=== PATIENT | female | born 1945 | race Caucasian/White ===

== ENCOUNTER 2020-10-30 20:15 | Emergency (ER) | payer OTHER ==
--- OUTSIDE RECORDS SUMMARY | 2020-10-30 20:24 | XMS REPORT | Continuity of Care Document ---
:1945 Author Organization [facility] t Address [facility] Ghanshyam [address] [place] [address] Care Team Providers Name Role Phone Coral Carmen Attending Clinician Unavailable Jossy Song Attending Clinician [phone] Ivan Anaya Attending Clinician Coral Carmen Admitting Clinician Unavailable Ivan Anaya Admitting Clinician Payers Payer Name Policy Type Policy Number Effective Date Expiration Date S ource Problems Condition Condition Condition Status Onset Resolution Last Treating Co mments Source Name Details Category Date Date Treatment Clinician Date ANEMIA Diagnosis Active 2018-032019-01-21 Mem oria 03-12 22:20:00 l ANEMIA 14:03: Ghanshyam 00 Active 01/10/2019 [facility] Ghanshyam 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 [place] ANEMIA, Diagnosis Active 2019-01-21 Me moria UNSPECIFIE 22:20:00 l D ANEMIA, [place] UNSPECIFIE D Active [facility] Allergies, Adverse Reactions, Alerts Allergy Allergy Status Severity Reaction(s) Onset Inactive Treating Comm ents Source Name Type Date Date Clinician No Known DA Active [facility]ie 10-06 [facility] 00:00: [facility] 00 [facility] Social History Smoking Status Start Date Stop Date Source Social History [facility] Medications Ordered Filled Start Stop Current Ordering Indication Dosage Frequency Signature Comments Components Source Medication Medication Date Date Medication? Clinician (SIG) Name Name cefdinir 2019 Yes 300 mg = 1 Mem oria 300 MG Oral 1-12 cap, PO, l Capsule 22:55: Q12H, X 7 Peri nn 00 day, # 14 cap, 0 Refill(s), Pharmacy: [facility] #[id number] cefdinir 2018-03 Yes 300 mg = 1 Mem oria 300 MG Oral 1-12 cap, PO, l Capsule 22:55: Q12H, X 7 Peri nn 00 day, # 14 cap, 0 Refill(s), Pharmacy: [facility] #[id number] cefdinir 2018-03 Yes 300 mg = 1 Mem oria 300 MG Oral 1-12 cap, PO, l Capsule 22:55: Q12H, X 7 Peri nn 00 day, # 14 cap, 0 Refill(s), Pharmacy: [facility] #[id number] Vitamin 2018-03 Yes See Memoria B-12 1000 1-12 Instructio l mcg/mL 22:52: ns, 1,000 Pete n injectable 00 microgram solution SUB-Q daily for three days then once a week (saturday) for a month, then once monthly therafter, # 30 mL, 3 Refill(s), Pharmacy: [facility] #[id number] Folic Acid 2018-03 Yes 1 mg = 1 Mem oria 1 MG Oral 1-12 tab, PO, l Tablet 22:52: Daily, # [place] 00 30 tab, 3 Refill(s), Pharmacy: [facility] #[id number] Vitamin 2018-03 Yes See Memoria B-12 1000 1-12 Instructio l mcg/mL 22:52: ns, 1,000 Pete n injectable 00 microgram solution SUB-Q daily for three days then once a week (saturday) for a month, then once monthly therafter, # 30 mL, 3 Refill(s), Pharmacy: [facility] #[id number] Folic Acid 2018-03 Yes 1 mg = 1 Mem oria 1 MG Oral 1-12 tab, PO, l Tablet 22:52: Daily, # Ghanshyam 00 30 tab, 3 Refill(s), Pharmacy: [facility] #[id number] Vitamin 2018-03 Yes See Memoria B-12 1000 12 Instructio l mcg/mL 22:52: ns, 1,000 Pete n injectable 00 microgram solution SUB-Q daily for three days then once a week (saturday) for a month, then once monthly therafter, # 30 mL, 3 Refill(s), Pharmacy: [facility] #[id number] Folic Acid 2018-03 Yes 1 mg = 1 Mem oria 1 MG Oral -12 tab, PO, l Tablet 22:52: Daily, # Ghanshyam 00 30 tab, 3 Refill(s), Pharmacy: [facility] #[id number] Vitamin B 2018-03 No Notes: Memori a 12 -12 (Same As: l 15:00: Vitamin [place] 00 B12) Vitamin B 2018-03 No Notes: Memori a 12 12 (Same As: l 15:00: Vitamin Ghanshyam 00 B12) Vitamin B 2018-03 No Notes: Memori a 12 -12 (Same As: l 15:00: Vitamin [place] 00 B12) Vitamin B 2018-03 No Notes: Memori a 12 -10 (Same As: l 21:00: Vitamin Ghanshyam 00 B12) Vitamin B 2018-03 No Notes: Memori a 12 -10 (Same As: l 21:00: Vitamin [place] 00 B12) Vitamin B 2018-03 No Notes: Memori a 12 -10 (Same As: l 21:00: Vitamin Ghanshyam 00 B12) Sodium 2018-03 No 250 mL, Memoria Chloride 10 Rate: To l 0.9% 20:02: prime line Ghanshyam (titrate) 00 and flush 250 mL remaining blood products., Dosing Weight 109.9, kg, Route: IV, Total Volume: 250, Start Date: 01/11/19 14:02:00 EMBOSSING MACHINE OPERATOR, Duration: 1 day, Stop date: 01/12/19 14:01:00 EMBOSSING MACHINE OPERATOR, Replace Every: 24 hr, 0 Sodium 2018-03 No 250 mL, Memoria Chloride -10 Rate: To l 0.9% 20:02: prime line Ghanshyam (titrate) 00 and flush 250 mL remaining blood products., Dosing Weight 109.9, kg, Route: IV, Total Volume: 250, Start Date: 01/11/19 14:02:00 EMBOSSING MACHINE OPERATOR, Duration: 1 day, Stop date: 01/12/19 14:01:00 EMBOSSING MACHINE OPERATOR, Replace Every: 24 hr, 0 Sodium 2018-03 No 250 mL, Memoria Chloride 1-10 Rate: To l 0.9% 20:02: prime line [place] (titrate) 00 and flush 250 mL remaining blood products., Dosing Weight 109.9, kg, Route: IV, Total Volume: 250, Start Date: 01/11/19 14:02:00 EMBOSSING MACHINE OPERATOR, Duration: 1 day, Stop date: 01/12/19 14:01:00 EMBOSSING MACHINE OPERATOR, Replace Every: 24 hr, 0 Synthroid 2018-03 No Notes: Memori a 1-10 Take 1 l 15:00: hour [place] 00 before or 2 hours after meal; Enteral feeds may interefere with the absorption of this medication . (Same as:Levothr oid, Synthroid) Folic Acid 2018-03 No Notes: Memor ia 1-10 (Same as: l 15:00: Folvite) [place] Synthroid 2018-03 No Notes: Memori a 1-10 Take 1 l 15:00: hour Ghanshyam 00 before or 2 hours after meal; Enteral feeds may interefere with the absorption of this medication . (Same as:Levothr oid, Synthroid) Folic Acid 2018-03 No Notes: Memor ia 1-10 (Same as: l 15:00: Folvite) Ghanshyam Synthroid 2018-03 No Notes: Memori a 1-10 Take 1 l 15:00: hour Ghanshyam 00 before or 2 hours after meal; Enteral feeds may interefere with the absorption of this medication . (Same as:Levothr oid, Synthroid) Folic Acid 2018-03 No Notes: Memor ia 1-10 (Same as: l 15:00: Folvite) Sodium 2018-03 No 250 mL, Memoria Chloride 1-10 Rate: To l 0.9% 09:36: prime line [place] (titrate) 00 and flush 250 mL remaining blood products., Dosing Weight 109.9, kg, Route: IV, Total Volume: 250, Priority: Routine, Start Date: 01/11/19 3:36:00 EMBOSSING MACHINE OPERATOR, Duration: 1 day, Stop date: 01/12/19 3:35:00 EMBOSSING MACHINE OPERATOR, Replace Every: 24 hr, 0 Sodium 2018-03 No 250 mL, Memoria Chloride 1-10 Rate: To l 0.9% 09:36: prime line [place] (titrate) 00 and flush 250 mL remaining blood products., Dosing Weight 109.9, kg, Route: IV, Total Volume: 250, Priority: Routine, Start Date: 01/11/19 3:36:00 EMBOSSING MACHINE OPERATOR, Duration: 1 day, Stop date: 01/12/19 3:35:00 EMBOSSING MACHINE OPERATOR, Replace Every: 24 hr, 0 Sodium 2018-03 No 250 mL, Memoria Chloride 1-10 Rate: To l 0.9% 09:36: prime line Ghanshyam (titrate) 00 and flush 250 mL remaining blood products., Dosing Weight 109.9, kg, Route: IV, Total Volume: 250, Priority: Routine, Start Date: 01/11/19 3:36:00 EMBOSSING MACHINE OPERATOR, Duration: 1 day, Stop date: 01/12/19 3:35:00 EMBOSSING MACHINE OPERATOR, Replace Every: 24 hr, 0 Ceftriaxone 2018-03 No Notes: Sj marilee 1-10 (Same As: l 08:00: Rocephin). Ghanshyam 00 MEDICATION WASTE Product Size: 1000 mg Product Wasted: ___ mg Ceftriaxone 2018-03 No Notes: Sj marilee 1-10 (Same As: l 08:00: Rocephin). Ghanshyam 00 MEDICATION WASTE Product Size: 1000 mg Product Wasted: ___ mg Ceftriaxone 2018-03 No Notes: Sj marilee 1-10 (Same As: l 08:00: Rocephin). Ghanshyam 00 MEDICATION WASTE Product Size: 1000 mg Product Wasted: ___ mg Hydromorpho 2018-03 No Notes: Sj marilee ne 1-10 Same as: l 07:53: Dilaudid Ghanshyam Hydromorpho 2018-03 No Notes: Sj marilee ne 1-10 Same as: l 07:53: Dilaudid Ghanshyam Hydromorpho 2018-03 No Notes: Sj marilee ne 1-10 Same as: l 07:53: Dilaudid Ghanshyam Robitussin 2018-03 No Notes: Memor ia DM -10 (dextromet l 01:03: horphan-gu Ghanshyam 00 aifenesin 10-100mg/5 ml 10 ml oral SOLN ud) (Same as: Robitussin DM) Robitussin 2018-03 No Notes: Memor ia DM 1-10 (dextromet l 01:03: horphan-gu Ghanshyam 00 aifenesin 10-100mg/5 ml 10 ml oral SOLN ud) (Same as: Robitussin DM) Robitussin 2018-03 No Notes: Memor ia DM 1-10 (dextromet l 01:03: horphan-gu Ghanshyam 00 aifenesin 10-100mg/5 ml 10 ml oral SOLN ud) (Same as: Robitussin DM) Sodium 2018-03 No 1,000 mL, Memori a Chloride 1-10 Rate: 125 l 0.9% IV 00:59: ml/hr, [place] 1,000 mL 00 Infuse over: 8 hr, Route: IV, Dosing Weight 109.9 kg, Total Volume: 1,000, Start date: 01/10/19 18:59:00 EMBOSSING MACHINE OPERATOR, Duration: 30 day, Stop date: 02/09/19 18:58:00 EMBOSSING MACHINE OPERATOR, 2.28, m2, 0 Sodium 2018-03 No 1,000 mL, Memori a Chloride 1-10 Rate: 125 l 0.9% IV 00:59: ml/hr, [place] 1,000 mL 00 Infuse over: 8 hr, Route: IV, Dosing Weight 109.9 kg, Total Volume: 1,000, Start date: 01/10/19 18:59:00 EMBOSSING MACHINE OPERATOR, Duration: 30 day, Stop date: 02/09/19 18:58:00 EMBOSSING MACHINE OPERATOR, 2.28, m2, 0 Sodium 2018-03 No 1,000 mL, Memori a Chloride 1-10 Rate: 125 l 0.9% IV 00:59: ml/hr, Ghanshyam 1,000 mL 00 Infuse over: 8 hr, Route: IV, Dosing Weight 109.9 kg, Total Volume: 1,000, Start date: 01/10/19 18:59:00 EMBOSSING MACHINE OPERATOR, Duration: 30 day, Stop date: 02/09/19 18:58:00 EMBOSSING MACHINE OPERATOR, 2.28, m2, 0 Sodium 2018-03 No 1,000 mL, Memori a Chloride 1-10 1,000 l 0.9% 00:58: ml/hr, [place] (Bolus) IV 00 Infuse Over: 1 hr, Route: IV, 1,000, Drug form: INJ, ONCE, Priority: STAT, Dosing Weight 109.9 kg, Start date: 01/10/19 18:58:00 EMBOSSING MACHINE OPERATOR, Stop date: 01/10/19 18:58:00 EMBOSSING MACHINE OPERATOR, 0 Sodium 2019- No 1,000 mL, Memori a Chloride 1-10 1,000 l 0.9% 00:58: ml/hr, [place] (Bolus) IV 00 Infuse Over: 1 hr, Route: IV, 1,000, Drug form: INJ, ONCE, Priority: STAT, Dosing Weight 109.9 kg, Start date: 01/10/19 18:58:00 EMBOSSING MACHINE OPERATOR, Stop date: 01/10/19 18:58:00 EMBOSSING MACHINE OPERATOR, 0 Sodium 2019- No 1,000 mL, Memori a Chloride 1-10 1,000 l 0.9% 00:58: ml/hr, [place] (Bolus) IV 00 Infuse Over: 1 hr, Route: IV, 1,000, Drug form: INJ, ONCE, Priority: STAT, Dosing Weight 109.9 kg, Start date: 01/10/19 18:58:00 EMBOSSING MACHINE OPERATOR, Stop date: 01/10/19 18:58:00 EMBOSSING MACHINE OPERATOR, 0 Dextrose 2018- No 12.5 gm, Memor ia 50% Syringe 03-12 25 mL, l 23:59: Route: Ghanshyam 00 IVP, Drug Form: INJ, Dosing Weight 109.9, kg, PRN, PRN Blood Glucose Results, Start date: 01/10/19 17:59:00 EMBOSSING MACHINE OPERATOR, Duration: 30 day, Stop date: 02/09/19 17:58:00 EMBOSSING MACHINE OPERATOR, 0 Glucagon 2018- No 1 mg, Memoria 03-12 Route: IM, l 23:59: Drug form: Ghanshyam 00 PDR/INJ, PRN, Dosing Weight 109.9, kg, PRN Blood Glucose Results, Start date: 01/10/19 17:59:00 EMBOSSING MACHINE OPERATOR, Duration: 30 day, Stop date: 02/09/19 17:58:00 EMBOSSING MACHINE OPERATOR, 0 Ondansetron 2018- No Notes: Sj marilee 03-12 (Same as: l 23:59: Zofran) Ghanshyam 00 MEDICATION WASTE Product Size: 4 mg Product Wasted: ___ mg Melatonin 2018-03 No Notes: Memori a 03-12 (Same as: l 23:59: Melatonin) Acetaminoph 2018-03 No Notes: Do Coral newbyria en 03-12 not exceed l 23:59: 4 gm/day. (Same as: Tylenol) Dextrose 2018-03 No 12.5 gm, Memor ia 50% Syringe 03-12 25 mL, l 23:59: Route: [place] 00 IVP, Drug Form: INJ, Dosing Weight 109.9, kg, PRN, PRN Blood Glucose Results, Start date: 01/10/19 17:59:00 EMBOSSING MACHINE OPERATOR, Duration: 30 day, Stop date: 02/09/19 17:58:00 EMBOSSING MACHINE OPERATOR, 0 Glucagon 2018-03 No 1 mg, Memoria 03-12 Route: IM, l 23:59: Drug form: [place] 00 PDR/INJ, PRN, Dosing Weight 109.9, kg, PRN Blood Glucose Results, Start date: 01/10/19 17:59:00 EMBOSSING MACHINE OPERATOR, Duration: 30 day, Stop date: 02/09/19 17:58:00 EMBOSSING MACHINE OPERATOR, 0 Ondansetron 2018-03 No Notes: Sj marilee 03-12 (Same as: l 23:59: Zofran) MEDICATION WASTE Product Size: 4 mg Product Wasted: ___ mg Melatonin 2018-03 No Notes: Memori a 03-12 (Same as: l 23:59: Melatonin) Acetaminoph 2018-03 No Notes: Do Coral newbyria en 03-12 not exceed l 23:59: 4 gm/day. (Same as: Tylenol) Dextrose 2018-03 No 12.5 gm, Memor ia 50% Syringe 03-12 25 mL, l 23:59: Route: Ghanshyam 00 IVP, Drug Form: INJ, Dosing Weight 109.9, kg, PRN, PRN Blood Glucose Results, Start date: 01/10/19 17:59:00 EMBOSSING MACHINE OPERATOR, Duration: 30 day, Stop date: 02/09/19 17:58:00 EMBOSSING MACHINE OPERATOR, 0 Glucagon 2018-03 No 1 mg, Memoria 03-12 Route: IM, l 23:59: Drug form: [place] 00 PDR/INJ, PRN, Dosing Weight 109.9, kg, PRN Blood Glucose Results, Start date: 01/10/19 17:59:00 EMBOSSING MACHINE OPERATOR, Duration: 30 day, Stop date: 02/09/19 17:58:00 EMBOSSING MACHINE OPERATOR, 0 Ondansetron 2018-03 No Notes: Sj marilee 03-12 (Same as: l 23:59: Zofran) MEDICATION WASTE Product Size: 4 mg Product Wasted: ___ mg Melatonin 2018-03 No Notes: Memori a 03-12 (Same as: l 23:59: Melatonin) Acetaminoph 2018-03 No Notes: Do M emoria en 03-12 not exceed l 23:59: 4 gm/day. (Same as: Tylenol) Synthroid 2018-03 Yes 200 Memoria 1-09 microgram, l 23:49: 0 [place] 00 Refill(s) Synthroid 2018-03 Yes 200 Memoria 1-09 microgram, l 23:49: 0 [place] 00 Refill(s) Synthroid 2018-03 Yes 200 Memoria 1-09 microgram, l 23:49: 0 [place] 00 Refill(s) Streptococc 2018-03 No Notes: Sj marilee us 03-12 Shake well l pneumoniae 23:35: prior to Her childs serotype 1 18 use (Same capsular as: antigen Prevnar diphtheria 13) [id number] protein conjugate vaccine / Streptococc us pneumoniae serotype 14 capsular antigen diphtheria [id number] protein conjugate vaccine / Streptococc us pneumoniae serotype 18C capsular antigen d Streptococc 2018-03 No Notes: Sj marilee us 03-12 Shake well l pneumoniae 23:35: prior to Her childs serotype 1 18 use (Same capsular as: antigen Prevnar diphtheria 13) [id number] protein conjugate vaccine / Streptococc us pneumoniae serotype 14 capsular antigen diphtheria [id number] protein conjugate vaccine / Streptococc us pneumoniae serotype 18C capsular antigen d Streptococc 2018-03 No Notes: Sj marilee us 03-12 Shake well l pneumoniae 23:35: prior to Her childs serotype 1 18 use (Same capsular as: antigen Prevnar diphtheria 13) [id number] protein conjugate vaccine / Streptococc us pneumoniae serotype 14 capsular antigen diphtheria [id number] protein conjugate vaccine / Streptococc us pneumoniae serotype 18C capsular antigen d Sodium 2018-03 No 250 mL, Memoria Chloride 1-09 Rate: To l 0.9% 23:34: prime line [place] (titrate) 00 and flush 250 mL remaining blood products., Dosing Weight 109.9, kg, Route: IV, Total Volume: 250, Priority: Routine, Start Date: 01/10/19 17:34:00 EMBOSSING MACHINE OPERATOR, Duration: 1 day, Stop date: 01/11/19 17:33:00 EMBOSSING MACHINE OPERATOR, Replace Every: 24 hr, 0 Sodium 2019-1 No 250 mL, Memoria Chloride 1- Rate: To l 0.9% 23:34: prime line Ghanshyam (titrate) 00 and flush 250 mL remaining blood products., Dosing Weight 109.9, kg, Route: IV, Total Volume: 250, Priority: Routine, Start Date: 01/10/19 17:34:00 EMBOSSING MACHINE OPERATOR, Duration: 1 day, Stop date: 01/11/19 17:33:00 EMBOSSING MACHINE OPERATOR, Replace Every: 24 hr, 0 Sodium 2018- No 250 mL, Memoria Chloride 03-12 Rate: To l 0.9% 23:34: prime line [place] (titrate) 00 and flush 250 mL remaining blood products., Dosing Weight 109.9, kg, Route: IV, Total Volume: 250, Priority: Routine, Start Date: 01/10/19 17:34:00 EMBOSSING MACHINE OPERATOR, Duration: 1 day, Stop date: 01/11/19 17:33:00 EMBOSSING MACHINE OPERATOR, Replace Every: 24 hr, 0 Vital Signs Vital Name Observation Time Observation Value Comments Source Temperature Oral (F) 2019-01-13 22:01:00 98.5 F [facility] [place] Heart Rate 2019-01-13 22:01:00 [facility] [place] Respitory Rate 2019-01-13 22:01:00 Memori al [place] Systolic (mm Hg) 2019-01-13 22:01:00 Sj rial Ghanshyam Diastolic (mm Hg) 2019-01-13 22:01:00 Mem orial [place] Temperature Oral (F) 2019-01-13 16:57:00 98.2 F [facility] [place] Heart Rate 2019-01-13 16:57:00 [facility] Ghanshyam Systolic (mm Hg) 2019-01-13 16:57:00 Sj rial Ghanshyam Diastolic (mm Hg) 2019-01-13 16:57:00 Mem orial Ghanshyam Temperature Oral (F) 2019-01-13 13:35:00 98.3 F [facility] [place] Heart Rate 2019-01-13 13:35:00 [facility] [place] Respitory Rate 2019-01-13 13:35:00 Memori al Ghanshyam Systolic (mm Hg) 2019-01-13 13:35:00 Sj rial [place] Diastolic (mm Hg) 2019-01-13 13:35:00 Mem orial [place] Respitory Rate 2019-01-13 10:45:00 Memori al Ghanshyam Height 2019-01-13 03:00:00 165.1 cm [facility] Ghanshyam Height 2019-01-11 00:31:00 165.1 cm [facility] [place] Height 2019-01-10 23:51:00 165.1 cm [facility] Ghanshyam Weight 2019-01-10 23:51:00 [facility] [place] BMI Calculated 2019-01-10 23:51:00 Mem[facility] al Ghanshyam Weight 2019-01-10 23:50:00 [facility] Ghanshyam BMI Calculated 2019-01-10 23:50:00 Memori al [place] Procedures This patient has no known procedures. Encounters Start End Encounter Admission Attending Care Care Encounter Source Date/Time Date/Time Type Type Clinicians Facility Department ID 2019-01-10 Inpatient E [facility] [id number] [facility] L 16:38:00 2020-10-11 2020-10-14 Inpatient Barry Morgan [facility] DAYS [id number] [facility] 05:40:00 19:39:00 [id number] [facility] 2020-10-06 2020-10-06 Outpatient Reese Morganic [facility] 3DAY [id number] [facility] 00:00:00 23:59:00 [id number] [facility] 2020-07-14 2020-07-14 Outpatient Nohemi [facility] [id number] 00:00:00 00:00:00 [place] [id number] [place] [id number] 2020-06-16 2020-06-16 Outpatient Nohemi [facility] [id number] 00:00:00 00:00:00 [place] [id number] [place] [id number] 2019-01-10 2019-01-14 Inpatient [facility] [id number] Memoria 22:38:55 00:47:00 r [place] 00 l [facility] 2019-01-10 2019-01-14 Inpatient [facility] [id number] Memoria 22:38:55 00:47:00 r Ghanshyam 00 l [facility] 2019-01-10 2019-01-13 Outpatient [facility] [id number] 16:38:55 18:47:00 , Ivan Results Test Description Test Time Test Comments Results Result Comments Source SURGICAL 2020-10-20 10:25:00 Test Item Value Reference Range Interpretation Comme nts SURGICAL RUN DATE: (test 10/20/20 [facility] - LAB PAGE 1 RUN TIME: 1025 code = Specimen Inquiry RUN USER: INTERFACE SR) PATIENT: ELLA BLAIR LOC: P.5N POD B U #: [id number] AGE/SX: 74/ F ROOM: [facility] RE10/11/20REG DR: Barry Carmen MD : 47 BED: 1 DIS: 10/14/20 STATUS: DIS IN TLOC: SPEC #: [id number] RECD: STATUS: EVELYNE GARRISON #: [id number] LORRI: 10/11/[address]: Barry Carmen MD ENTERED: 10/12/20 SP TYPE: SURGICAL OTHR DR: ORDERED: [id number], [id number], H E STAIN, ANATOMIC SPEC HISTOLOGY: TISSUE ID BLK PCS GAVIN LEV / PROCEDURE DISPOSITION ____ ___ ___ ___ ___ COLSRT A 35 1 HERNIA SAC B 1 1 TISSUES: A. COLON SEGMENTAL RESECTION FOR TUMOR - Colon and Rectum B. HERNIA SAC - Hernia Sac CLINICAL COMMUNICATIONS Dr. Giang discussed the case with Dr. Carmen on 10/19/20 at 1329. CAP CANCER SUMMARY CASE SUMMARY: (COLON AND RECTUM: Resection, Including Transanal Disk Excision of R ectalNeoplasms) Standard(s): AJCC-UICC 8 Procedure:Total proctocolectomy with end ileostomy Macroscop ic Evaluation of Mesorectum: Complete Tumor Site: Cecum 2 x 1.5 x 0.5 cmAscending colon: 2.8 x 1.8 x 0.5 cmRectosigmoid: 1.3 x 1.2 x 0.6 cm Histologic Type: Adenocarcinoma Histologic Grade: G2, modera tely differentiated Multiple Primary Sites Present CECUMTumor Extent: Invades submucosa Macroscopi c Tumor: Not identified Lymphovascular Invasion :Not identified Perineural Invasion:Not identified +Typ e of Polyp in which Invasive Carcinoma:Tubular adenoma Treatment Effect: No known presurgical therapy Ma rgin Status for Invasive Carcinoma : All margins negative for invasive carcinoma Distance from Inva sive Carcinoma to Radial (Circumferential) Greater than 1 cm Margin Status for Non-Invasive Tumor : All margins negative for high-grade dysplasia /intramucosal carcinoma and low-grade dysplasia Regional Lymph Node Status: All regional lymph nodes negative for tumor Number of Lymph Nodes Examined: Exact number:36 Tumor Deposits: Not identified CONTINUED ON NEXT PAGE RUN DATE: 10/20/20 [facility] - LAB PAGE 2 RUN TIME: 1025 Specimen Inquiry RUN USER: INTERFACE SPEC #: [id number] PATIENT: ELLA BLAIR #[id number] (Continued) CAP CANCER SUMMARY (Continued) Distant Site(s) Involved, if applicable:Not applicable ASCENDING COLONTumor Extent: Invades through muscularis propria into pericolorectal tissue Macroscopic Tumor Perforation: Not ident ified Lymphovascular Invasion: Not identified Perineural Invasion: Not identified Treatment Effect: No known presurgical therapy Margin Status for Invasive Carcinoma: All margins negative for invasiv e carcinoma Distance from Invasive Carcinoma to Radial (Circumferential) Margin: Greater than 1 cm Ma rgin Status for Non-Invasive Tumor : All margins negative for high-grade dysplasia /intramucosal carc inoma and low-grade dysplasia Regional Lymph Node Status: All regional lymph nodes negative for tumor Num chelle of Lymph Nodes Examined: Exact number:36 Tumor Deposits: Not identified Distant Site(s) Involved, if applicable:Not applicable RECTOSIGMOIDTumor Extent: Invades muscularis mucosa Macroscopic Tumor: No t identified Lymphovascular Invasion :Not identified Perineural Invasion:Not identified +Type of Polyp in which Invasive Carcinoma:Tubular adenoma Treatment Effect: No known presurgical therapy Margin S tatus for Invasive Carcinoma : All margins negative for invasive carcinoma Distance from Invasive Carci noma to Radial (Circumferential) Greater than 1 cm Margin Status for Non-Invasive Tumor : All mar gins negative for high-grade dysplasia /intramucosal carcinoma and low-grade dysplasia Regional Lymph Nod e Status: All regional lymph nodes negative for tumor Number of Lymph Nodes Examined: Exact number:36 Tu mor Deposits: Not identified Distant Site(s) Involved, if applicable:Not applicable PATHOLOGIC STAGE CLASSIFICATION (pTNM, AJCC 8th Edition) [id number] Descriptors: m (multiple primary tumors) -stage is ba sed on most advanced tumorpT Category: pT3: Tumor invades through the muscularis propria into marylou colorectal tissues pN Category:pN0: No regional lymph node metastasis pM Category: Not applicable - p M cannot be determined from the submitted specimen(s) FINAL DIAGNOSIS A. COLON AND RECTU M, TOTAL PROCTOCOLECTOMY WITH END ILEOSTOMY: - INVASIVE ADENOCARCINOMA, [id number], (SEE CANCER CASE SUM ABHIJIT). -MULTIPLE PRIMARY TUMORS IN CECUM, ASCENDING COLON, AND RECTOSIGMOID COLON. -IN VASIVE INTO PERICOLORECTAL TISSUE. -MARGINS OF RESECTION NEGATIVE FOR DYSPLASIA OR MALIGNANCY. -THIRTY SIX LYMPH NODES NEGATIVE FOR CARCINOMA (0/36). -INNUMERABLE TUBULAR ADENOMAS AND TUBULOV ILLOUS ADENOMAS. -APPENDIX WITH FIBROUS OBLITERATION OF THE TIP. CONTINUED ON NEXT PAGE RUN DATE: 10/20/20 [facility] - LAB PAGE 3 RUN TIME: 1025 Specimen Inquiry RUN USER: INTERFACE SPEC #: [id number] PATIENT: ELLA BLAIR #[id number] (Continued) FINAL DIAGNOSIS (Continued) B. HERNIA SAC, EXCISION: - HERNIA SAC. GROSS DESCRIPTION A. Specimen A is recieved fresh labeled "colon and rectum" and consists of an 81cm segmentof bowel with 2cm of terminal i leum and 79 cm of colon with attached 5cm appendix. Theserosal surface shows creeping fat 14 cm fro m the proximal margin extending for anadditional 15 cm distally. The mesorectum appears complete. Externally there are no othergross abnormalities. The specimen is opened along the antimesenteric betty face to revealthree distinct lesions and inumerable sessile and pedunculated polyps ranging in size from0 .1 to 1.3 cm in greatest dimension. Lesion #1 is a fungating mass located 4cm from theileocecal valve and measures 2 x 1.5 x 0.5 cm. Lesion #2 is an ulcerative appearing lesionwith serpiginous borde rs located 17 cm from the ileocecal valve and measuring 2.8 x 1.8 x0.5 cm. Lesion #3 is located 12 cm f rom the distal margin and is a fungating massmeasuring 1.3 x 1.2 x 0.6 cm. All three lesions appear to be superficial with no invasion.The attached adipose extends up to 5 cm from the serosal surface and is r emoved for lymphnode dissection. Social Work Program Coordinator sections are submmited in 35 cassettes as follows: A1prox imal margin, A2-A3 distal margin, A4 ileocecal valve, A5 tip and base of appendix,A6-A9 lesion # 1 en tirely submitted, A10-A14 lesion #2,A15-A17 lesion #3, A18-A25 multiplerepresentative secti ons of colon with sessile and pedunculated polyps (from proximal todistal), A26-A35 multiple possible ly mph nodes. B. The specimen is received in formalin labeled "hernia sac" and consists of multiplefragment s of membranous tissue with attached fragments of adipose, in aggregate [id number] x 12.0 x 3.0 c m. The specimen is serially sectioned to reveal no gross lesions. Social Work Program Coordinator sections are submitted in one cassette labeled B1. FZ/ph Technical component performed at [facility] [facility], [facility], [place], [address] CLINICAL INFORMATION Colon cancer. Signed SIGNATURE ON FILE Julio César Giang MD 10/20/20 1025 END OF REPORT CBC W/MANUAL [id number] 07:52:00 Test Item Value Reference Range Interpretation Comments WHITE BLOOD CELL (test code = 6.7 x10 3/uL 4.8-10.8 N WBC) RED BLOOD CELL (test code = 2.09 x10 6/uL 4.20-5.40 L RBC) HEMOGLOBIN (test code = HGB) 7.3 g/dL 12.0-16.0 L HEMATOCRIT (test code = HCT) 24.2 % 37.0-47.0 L MEAN CELL VOLUME (test code = 115.8 fL 81.0-99.0 H MCV) MEAN CELL HGB (test code = MCH) 34.9 pg 27-31 H MEAN CELL HGB CONCENTRATION 30.2 G/DL 33-36.5 L (test code = MCHC) RED CELL DISTRIBUTION WIDTH 23.3 % 12.9-16.9 H (test code = RDW) PLATELET COUNT (test code = 187 x10 3/uL 150-440 N PLT) MEAN PLATELET VOLUME (test code 10.2 fL 8.9-12.4 N = MPV) NEUTROPHIL % (test code = NT%) 74.8 % 42.2-75.2 N LYMPHOCYTE % (test code = LY%) 16.4 % 20.5-51.1 L MONOCYTE % (test code = MO%) 7.5 % 1.7-9.3 N EOSINOPHIL % (test code = EO%) 0.4 % 0.0-7.0 N BASOPHIL % (test code = BA%) 0.3 % 0-2.5 N NEUTROPHIL # (test code = NT#) 5.01 x10 3/uL 1.80-7.70 N LYMPHOCYTE # (test code = LY#) 1.10 x10 3/uL 1.00-4.80 N MONOCYTE # (test code = MO#) 0.50 x10 3/uL 0.00-0.80 N EOSINOPHIL # (test code = EO#) 0.03 x10 3/uL 0.00-0.45 N BASOPHIL # (test code = BA#) 0.02 x10 3/uL 0.0-0.20 N TOTAL CELLS COUNTED (test code 100 #CELLS = TCC) SEGMENTED NEUTROPHILS (test 77 % 49-71 H code = SEG) LYMPHOCYTE (test code = LYMPH) 14 % 20-40 L MONOCYTE (test code = MON) 9 % 3-8 H HYPOCHROMIA (test code = HYPO) 1+ NONE SEEN A POIKILOCYTOSIS (test code = 1+ NONE SEEN A POIK) ANISOCYTOSIS (test code = 3+ NONE SEEN A ANISO) MACROCYTOSIS (test code = MACR) 3+ NONE SEEN A PLATELET MORPHOLOGY (test code NORMAL NORMAL = PLTMORPH) BASIC METABOLIC [id number] 05:06:00 Test Item Value Reference Range Interpretation Comments SODIUM (test code 141 mmol/L 136-145 N Please not e: New = NA) Reference Range Apr 2020 POTASSIUM (test 3.8 mmol/L 3.5-5.1 N code = K) CHLORIDE (test 113 mmol/L 98-107 H Please note: New code = CL) Reference Range Apr 2020 CARBON DIOXIDE 23 mmol/L 20-31 N Please note: New (test code = CO2) Reference Range Apr 2020 GLUCOSE (test code 98 mg/dL 74-106 N Please no te: New = GLU) Reference Range Apr 2020 BLOOD UREA 11 mg/dL 9-23 N Please note: Ne w NITROGEN (test Reference Ran ge Feb code = BUN) 2020 GLOMERULAR >=60 max >60 The estimated FILTRATION RATE estimate glomerular (test code = GFR) filtration rate is computed usingpatient ra ce, age (>18), sex, and serum creatinin e. If anyof the neede d data elements a re missing the Laboratory yris ot compute an estimation of t he glomerular filtration rate . CREATININE (test 0.70 mg/dL 0.55-1.02 N Please note : New code = CREAT) Reference Rang e Apr 2020 CALCIUM (test code 8.5 mg/dL 8.7-10.4 L Please no te: New = CA) Reference Range Apr 2020 [id number] 05:06:00 Test Item Value Reference Range Interpretation Comments MAGNESIUM (test code = 1.8 mg/dL 1.6-2.6 N Pleas e note: New MAG) Reference Range Apr 2020 CBC W/MANUAL [id number] 04:49:00 Test Item Value Reference Range Interpretation Comments WHITE BLOOD CELL (test code = 6.7 x10 3/uL 4.8-10.8 N WBC) RED BLOOD CELL (test code = 2.09 x10 6/uL 4.20-5.40 L RBC) HEMOGLOBIN (test code = HGB) 7.3 g/dL 12.0-16.0 L HEMATOCRIT (test code = HCT) 24.2 % 37.0-47.0 L MEAN CELL VOLUME (test code = 115.8 fL 81.0-99.0 H MCV) MEAN CELL HGB (test code = MCH) 34.9 pg 27-31 H MEAN CELL HGB CONCENTRATION 30.2 G/DL 33-36.5 L (test code = MCHC) RED CELL DISTRIBUTION WIDTH 23.3 % 12.9-16.9 H (test code = RDW) PLATELET COUNT (test code = 187 x10 3/uL 150-440 N PLT) MEAN PLATELET VOLUME (test code 10.2 fL 8.9-12.4 N = MPV) NEUTROPHIL % (test code = NT%) 74.8 % 42.2-75.2 N LYMPHOCYTE % (test code = LY%) 16.4 % 20.5-51.1 L MONOCYTE % (test code = MO%) 7.5 % 1.7-9.3 N EOSINOPHIL % (test code = EO%) 0.4 % 0.0-7.0 N BASOPHIL % (test code = BA%) 0.3 % 0-2.5 N NEUTROPHIL # (test code = NT#) 5.01 x10 3/uL 1.80-7.70 N LYMPHOCYTE # (test code = LY#) 1.10 x10 3/uL 1.00-4.80 N MONOCYTE # (test code = MO#) 0.50 x10 3/uL 0.00-0.80 N EOSINOPHIL # (test code = EO#) 0.03 x10 3/uL 0.00-0.45 N BASOPHIL # (test code = BA#) 0.02 x10 3/uL 0.0-0.20 N TOTAL CELLS COUNTED (test code #CELLS = TCC) SEGMENTED NEUTROPHILS (test % 49-71 code = SEG) LYMPHOCYTE (test code = LYMPH) % 20-40 HGB [id number] 18:20:00 Test Item Value Reference Range Interpretation Comments HEMOGLOBIN (test code = HGB) 7.8 g/dL 12.0-16.0 L HEMATOCRIT (test code = HCT) 25.6 % 37.0-47.0 L CBC W/MANUAL [id number] 06:38:00 Test Item Value Reference Range Interpretation Comments WHITE BLOOD CELL 8.3 x10 3/uL 4.8-10.8 N (test code = WBC) RED BLOOD CELL (test 2.14 x10 6/uL 4.20-5.40 L code = RBC) HEMOGLOBIN (test code 7.8 g/dL 12.0-16.0 L = HGB) HEMATOCRIT (test code 25.4 % 37.0-47.0 L = HCT) MEAN CELL VOLUME 118.7 fL 81.0-99.0 H (test code = MCV) MEAN CELL HGB (test 36.4 pg 27-31 H code = MCH) MEAN CELL HGB 30.7 G/DL 33-36.5 L CONCENTRATION (test code = MCHC) RED CELL DISTRIBUTION Test not 12.9-16.9 THE AN ALYZER WAS WIDTH (test code = performed % UNABLE TO RDW) PROVIDE A RESUL T FOR THISANALYTE . PLATELET COUNT (test 188 x10 3/uL 150-440 N code = PLT) MEAN PLATELET VOLUME 10.1 fL 8.9-12.4 N (test code = MPV) NEUTROPHIL % (test 81.8 % 42.2-75.2 H code = NT%) LYMPHOCYTE % (test 9.6 % 20.5-51.1 L code = LY%) MONOCYTE % (test code 8.0 % 1.7-9.3 N = MO%) EOSINOPHIL % (test 0.0 % 0.0-7.0 N code = EO%) BASOPHIL % (test code 0.1 % 0-2.5 N = BA%) NEUTROPHIL # (test 6.77 x10 3/uL 1.80-7.70 N code = NT#) LYMPHOCYTE # (test 0.79 x10 3/uL 1.00-4.80 L code = LY#) MONOCYTE # (test code 0.66 x10 3/uL 0.00-0.80 N = MO#) EOSINOPHIL # (test 0.00 x10 3/uL 0.00-0.45 N code = EO#) BASOPHIL # (test code 0.01 x10 3/uL 0.0-0.20 N = BA#) TOTAL CELLS COUNTED 100 #CELLS (test code = TCC) SEGMENTED NEUTROPHILS 82 % 49-71 H (test code = SEG) LYMPHOCYTE (test code 10 % 20-40 L = LYMPH) MONOCYTE (test code = 8 % 3-8 N MON) PLATELET ESTIMATE ADEQUATE ADEQUATE (test code = PLTEST) PLATELET MORPHOLOGY NORMAL NORMAL (test code = PLTMORPH) BASIC METABOLIC [id number] 05:47:00 Test Item Value Reference Range Interpretation Comments SODIUM (test code 141 mmol/L 136-145 N Please not e: New = NA) Reference Range Apr 2020 POTASSIUM (test 4.0 mmol/L 3.5-5.1 N code = K) CHLORIDE (test 112 mmol/L 98-107 H Please note: New code = CL) Reference Range Apr 2020 CARBON DIOXIDE 21 mmol/L 20-31 N Please note: New (test code = CO2) Reference Range Apr 2020 GLUCOSE (test code 94 mg/dL 74-106 N Please no te: New = GLU) Reference Range Apr 2020 BLOOD UREA 17 mg/dL 9-23 N Please note: Ne w NITROGEN (test Reference Ran ge Feb code = BUN) 2020 GLOMERULAR >=60 max >60 The estimated FILTRATION RATE estimate glomerular (test code = GFR) filtration rate is computed usingpatient ra ce, age (>18), sex, and serum creatinin e. If anyof the neede d data elements a re missing the Laboratory yris ot compute an estimation of t he glomerular filtration rate . CREATININE (test 0.80 mg/dL 0.55-1.02 N Please note : New code = CREAT) Reference Rang e Apr 2020 CALCIUM (test code 8.1 mg/dL 8.7-10.4 L Please no te: New = CA) Reference Range Apr 2020 [id number] 05:47:00 Test Item Value Reference Range Interpretation Comments MAGNESIUM (test code = 1.7 mg/dL 1.6-2.6 N Pleas e note: New MAG) Reference Range Apr 2020 B-TYPE NATRIURETIC [id number] 05:35:00 Test Item Value Reference Range Interpretation Comments B-TYPE NATRIURETIC PEPTIDE (test 302 pg/mL <100 H code = BNP) CBC W/MANUAL [id number] 05:34:00 Test Item Value Reference Range Interpretation Comments WHITE BLOOD CELL 8.3 x10 3/uL 4.8-10.8 N (test code = WBC) RED BLOOD CELL (test 2.14 x10 6/uL 4.20-5.40 L code = RBC) HEMOGLOBIN (test code 7.8 g/dL 12.0-16.0 L = HGB) HEMATOCRIT (test code 25.4 % 37.0-47.0 L = HCT) MEAN CELL VOLUME 118.7 fL 81.0-99.0 H (test code = MCV) MEAN CELL HGB (test 36.4 pg 27-31 H code = MCH) MEAN CELL HGB 30.7 G/DL 33-36.5 L CONCENTRATION (test code = MCHC) RED CELL DISTRIBUTION Test not 12.9-16.9 THE AN ALYZER WAS WIDTH (test code = performed % UNABLE TO RDW) PROVIDE A RESUL T FOR THISANALYTE . PLATELET COUNT (test 188 x10 3/uL 150-440 N code = PLT) MEAN PLATELET VOLUME 10.1 fL 8.9-12.4 N (test code = MPV) NEUTROPHIL % (test 81.8 % 42.2-75.2 H code = NT%) LYMPHOCYTE % (test 9.6 % 20.5-51.1 L code = LY%) MONOCYTE % (test code 8.0 % 1.7-9.3 N = MO%) EOSINOPHIL % (test 0.0 % 0.0-7.0 N code = EO%) BASOPHIL % (test code 0.1 % 0-2.5 N = BA%) NEUTROPHIL # (test 6.77 x10 3/uL 1.80-7.70 N code = NT#) LYMPHOCYTE # (test 0.79 x10 3/uL 1.00-4.80 L code = LY#) MONOCYTE # (test code 0.66 x10 3/uL 0.00-0.80 N = MO#) EOSINOPHIL # (test 0.00 x10 3/uL 0.00-0.45 N code = EO#) BASOPHIL # (test code 0.01 x10 3/uL 0.0-0.20 N = BA#) TOTAL CELLS COUNTED #CELLS (test code = TCC) SEGMENTED NEUTROPHILS % 49-71 (test code = SEG) LYMPHOCYTE (test code % 20-40 = LYMPH) UR SMEAR EOSINOPHIL [id number] 20:12:00 Test Item Value Reference Range Interpretation Comments UR SMEAR EOSINOPHIL COUNT (test NONE SEEN NONE SEEN code = EOSCTU) UR CHLORIDE [id number] 20:12:00 Test Item Value Reference Range Interpretation Comments UR CHLORIDE RANDOM (test code = 61 mmol/L Not Establsd N CLU) UR MYOGLOBIN [id number] 20:12:00 Test Item Value Reference Range Interpretation Comments UR MYOGLOBIN QUAL (test code = POSITIVE NEGATIVE A MYOGQLU) UR SMEAR EOSINOPHIL [id number] 19:44:00 Test Item Value Reference Range Interpretation Comments UR SMEAR EOSINOPHIL COUNT (test code = NONE SEEN EOSCTU) UR CHLORIDE [id number] 19:44:00 Test Item Value Reference Range Interpretation Comments UR CHLORIDE RANDOM (test code = 61 mmol/L Not Establsd N CLU) UR MYOGLOBIN [id number] 19:44:00 Test Item Value Reference Range Interpretation Comments UR MYOGLOBIN QUAL (test code = POSITIVE NEGATIVE A MYOGQLU) UR SMEAR EOSINOPHIL [id number] 18:33:00 Test Item Value Reference Range Interpretation Comments UR SMEAR EOSINOPHIL COUNT (test code = NONE SEEN EOSCTU) UR CHLORIDE [id number] 18:33:00 Test Item Value Reference Range Interpretation Comments UR CHLORIDE RANDOM (test code = 61 mmol/L Not Establsd N CLU) UR MYOGLOBIN [id number] 18:33:00 Test Item Value Reference Range Interpretation Comments UR MYOGLOBIN QUAL (test code = MYOGQLU) NEGATIVE BASIC METABOLIC [id number] 05:58:00 Test Item Value Reference Range Interpretation Comments SODIUM (test code = 142 mmol/L 136-145 N Please n ote: New NA) Reference Range Apr 2020 POTASSIUM (test code 4.5 mmol/L 3.5-5.1 N = K) CHLORIDE (test code = 113 mmol/L 98-107 H Please note: New CL) Reference Range Apr 2020 CARBON DIOXIDE (test 20 mmol/L 20-31 N Please note: New code = CO2) Reference Range Apr 2020 GLUCOSE (test code = 139 mg/dL 74-106 H Please note: New GLU) Reference Range Apr 2020 BLOOD UREA NITROGEN 13 mg/dL 9-23 N Please n ote: New (test code = BUN) Reference Range Apr 2020 GLOMERULAR FILTRATION 47 >60 L The es timated RATE (test code = glomerular filtration GFR) rate is compute d usingpatient ra ce, age (>18), sex, and serum creatinine. If anyof the needed data elements are mi ssing the Laboratory cannot compute an pito mation of the glomerul ar filtration rate . CREATININE (test code 1.20 mg/dL 0.55-1.02 H Please note: New = CREAT) Reference Range Apr 2020 CALCIUM (test code = 7.4 mg/dL 8.7-10.4 L Please note: New CA) Reference Range Apr 2020 CBC W/AUTO [id number] 05:38:00 Test Item Value Reference Range Interpretation Comments WHITE BLOOD CELL 10.5 x10 3/uL 4.8-10.8 N (test code = WBC) RED BLOOD CELL (test 2.66 x10 6/uL 4.20-5.40 L code = RBC) HEMOGLOBIN (test code 9.6 g/dL 12.0-16.0 L = HGB) HEMATOCRIT (test code 31.4 % 37.0-47.0 L = HCT) MEAN CELL VOLUME 118.0 fL 81.0-99.0 H (test code = MCV) MEAN CELL HGB (test 36.1 pg 27-31 H code = MCH) MEAN CELL HGB 30.6 G/DL 33-36.5 L CONCENTRATION (test code = MCHC) RED CELL DISTRIBUTION Test not 12.9-16.9 THE AN ALYZER WAS WIDTH (test code = performed % UNABLE TO RDW) PROVIDE A RESUL T FOR THISANALYTE . PLATELET COUNT (test 256 x10 3/uL 150-440 N code = PLT) MEAN PLATELET VOLUME 10.0 fL 8.9-12.4 N (test code = MPV) NEUTROPHIL % (test 88.1 % 42.2-75.2 H code = NT%) LYMPHOCYTE % (test 3.3 % 20.5-51.1 L code = LY%) MONOCYTE % (test code 8.2 % 1.7-9.3 N = MO%) EOSINOPHIL % (test 0.0 % 0.0-7.0 N code = EO%) BASOPHIL % (test code 0.1 % 0-2.5 N = BA%) NEUTROPHIL # (test 9.22 x10 3/uL 1.80-7.70 H code = NT#) LYMPHOCYTE # (test 0.35 x10 3/uL 1.00-4.80 L code = LY#) MONOCYTE # (test code 0.86 x10 3/uL 0.00-0.80 H = MO#) EOSINOPHIL # (test 0.00 x10 3/uL 0.00-0.45 N code = EO#) BASOPHIL # (test code 0.01 x10 3/uL 0.0-0.20 N = BA#) AG HEPATITIS B [id number] 18:56:00 Test Item Value Reference Range Interpretation Comments AG HEPATITIS B SURFACE (test code Nonreactive Nonreactive = HBSAG) AB HEPATITIS B [id number] 18:56:00 Test Item Value Reference Range Interpretation Comments AB HEPATITIS B CORE (test code = Nonreactive Nonreactive HBCAB) AB HEPATITIS B CORE [id number] 18:56:00 Test Item Value Reference Range Interpretation Comments AB HEPATITIS B CORE IGM (test Nonreactive Nonreactive code = HBCMAB) HIV 1 2 COMBO AG/AB [id number] 18:56:00 Test Item Value Reference Range Interpretation Comments HIV 1 2 COMBO AG/AB SCREEN (test Nonreactive Nonreactive code = [id number]) COMPREHENSIVE METABOLIC [id number] 18:28:00 Test Item Value Reference Range Interpretation Comments SODIUM (test code = 146 mmol/L 136-145 H Please n ote: New NA) Reference Range Apr 2020 POTASSIUM (test 3.9 mmol/L 3.5-5.1 N code = K) CHLORIDE (test code 118 mmol/L 98-107 H Please n ote: New = CL) Reference Range Apr 2020 CARBON DIOXIDE 20 mmol/L 20-31 N Please note: New (test code = CO2) Reference Range Apr 2020 GLUCOSE (test code 123 mg/dL 74-106 H Please no te: New = GLU) Reference Range Apr 2020 BLOOD UREA NITROGEN 9 mg/dL 9-23 N Please n ote: New (test code = BUN) Reference Range Apr 2020 GLOMERULAR >=60 max >60 The estimated FILTRATION RATE estimate glomerular (test code = GFR) filtration rate is computed usingpatient ra ce, age (>18), sex, and serum creatinin e. If anyof the ne eded data elements a re missing the Laboratory yris ot compute an estimation of t he glomerular filtration rate . CREATININE (test 0.90 mg/dL 0.55-1.02 N Please note : New code = CREAT) Reference Rang e Apr 2020 TOTAL PROTEIN (test 4.4 g/dL 5.7-8.2 L Please n ote: New code = PROT) Reference Range Apr 2020 ALBUMIN (test code 3.3 g/dL 3.2-4.8 N Please no te: New = ALB) Reference Range Apr 2020 CALCIUM (test code 6.6 mg/dL 8.7-10.4 L Please no te: New = CA) Reference Range Apr 2020 BILIRUBIN TOTAL 2.6 mg/dL 0.3-1.2 H Please note: New (test code = BILT) Reference Range Apr 2020 SGOT/AST (test code 42 U/L <34 H Please n ote: New = AST) Reference Range Apr 2020 SGPT/ALT (test code 19 U/L 10-49 N Please n ote: New = ALT) Reference Range Apr 2020 ALKALINE 82 U/L 46-116 N Please note: Ne w PHOSPHATASE (test Reference Range Feb code = ALKP) 2020 COMPREHENSIVE METABOLIC [id number] 18:16:00 Test Item Value Reference Range Interpretation Comments SODIUM (test code = 146 mmol/L 136-145 H Please n ote: New NA) Reference Range Apr 2020 POTASSIUM (test 3.9 mmol/L 3.5-5.1 N code = K) CHLORIDE (test code 118 mmol/L 98-107 H Please n ote: New = CL) Reference Range Apr 2020 CARBON DIOXIDE 20 mmol/L 20-31 N Please note: New (test code = CO2) Reference Range Apr 2020 GLUCOSE (test code 123 mg/dL 74-106 H Please no te: New = GLU) Reference Range Apr 2020 BLOOD UREA NITROGEN 9 mg/dL 9-23 N Please n ote: New (test code = BUN) Reference Range Apr 2020 GLOMERULAR >=60 max >60 The estimated FILTRATION RATE estimate glomerular (test code = GFR) filtration rate is computed usingpatient ra ce, age (>18), sex, and serum creatinin e. If anyof the ne eded data elements a re missing the Laboratory yris ot compute an estimation of t he glomerular filtration rate . CREATININE (test 0.90 mg/dL 0.55-1.02 N Please note : New code = CREAT) Reference Rang e Apr 2020 TOTAL PROTEIN (test 4.4 g/dL 5.7-8.2 L Please n ote: New code = PROT) Reference Range Apr 2020 ALBUMIN (test code 3.3 g/dL 3.2-4.8 N Please no te: New = ALB) Reference Range Apr 2020 CALCIUM (test code mg/dL 8.7-10.4 = CA) BILIRUBIN TOTAL 2.6 mg/dL 0.3-1.2 H Please note: New (test code = BILT) Reference Range Apr 2020 SGOT/AST (test code 42 U/L <34 H Please n ote: New = AST) Reference Range Apr 2020 SGPT/ALT (test code 19 U/L 10-49 N Please n ote: New = ALT) Reference Range Apr 2020 ALKALINE 82 U/L 46-116 N Please note: Ne w PHOSPHATASE (test Reference Range Feb code = ALKP) 2020 COMPREHENSIVE METABOLIC [id number] 18:15:00 Test Item Value Reference Range Interpretation Comments SODIUM (test code = 146 mmol/L 136-145 H Please n ote: New NA) Reference Range Apr 2020 POTASSIUM (test 3.9 mmol/L 3.5-5.1 N code = K) CHLORIDE (test code 118 mmol/L 98-107 H Please n ote: New = CL) Reference Range Apr 2020 CARBON DIOXIDE 20 mmol/L 20-31 N Please note: New (test code = CO2) Reference Range Apr 2020 GLUCOSE (test code 123 mg/dL 74-106 H Please no te: New = GLU) Reference Range Apr 2020 BLOOD UREA NITROGEN 9 mg/dL 9-23 N Please n ote: New (test code = BUN) Reference Range Apr 2020 GLOMERULAR >=60 max >60 The estimated FILTRATION RATE estimate glomerular (test code = GFR) filtration rate is computed usingpatient ra ce, age (>18), sex, and serum creatinin e. If anyof the ne eded data elements a re missing the Laboratory yris ot compute an estimation of t he glomerular filtration rate . CREATININE (test 0.90 mg/dL 0.55-1.02 N Please note : New code = CREAT) Reference Rang e Apr 2020 TOTAL PROTEIN (test g/dL 5.7-8.2 code = PROT) ALBUMIN (test code g/dL 3.2-4.8 = ALB) CALCIUM (test code mg/dL 8.7-10.4 = CA) BILIRUBIN TOTAL mg/dL 0.3-1.2 (test code = BILT) SGOT/AST (test code U/L <34 = AST) SGPT/ALT (test code U/L 10-49 = ALT) ALKALINE 82 U/L 46-116 N Please note: Ne w PHOSPHATASE (test Reference Range Feb code = ALKP) 2020 COMPREHENSIVE METABOLIC [id number] 18:14:00 Test Item Value Reference Range Interpretation Comments SODIUM (test code = 146 mmol/L 136-145 H Please n ote: New NA) Reference Range Apr 2020 POTASSIUM (test 3.9 mmol/L 3.5-5.1 N code = K) CHLORIDE (test code 118 mmol/L 98-107 H Please n ote: New = CL) Reference Range Apr 2020 CARBON DIOXIDE 20 mmol/L 20-31 N Please note: New (test code = CO2) Reference Range Apr 2020 GLUCOSE (test code 123 mg/dL 74-106 H Please no te: New = GLU) Reference Range Apr 2020 BLOOD UREA NITROGEN 9 mg/dL 9-23 N Please n ote: New (test code = BUN) Reference Range Apr 2020 GLOMERULAR >=60 max >60 The estimated FILTRATION RATE estimate glomerular (test code = GFR) filtration rate is computed usingpatient ra ce, age (>18), sex, and serum creatinin e. If anyof the ne eded data elements a re missing the Laboratory yris ot compute an estimation of t he glomerular filtration rate . CREATININE (test 0.90 mg/dL 0.55-1.02 N Please note : New code = CREAT) Reference Rang e Apr 2020 TOTAL PROTEIN (test g/dL 5.7-8.2 code = PROT) ALBUMIN (test code g/dL 3.2-4.8 = ALB) CALCIUM (test code mg/dL 8.7-10.4 = CA) BILIRUBIN TOTAL mg/dL 0.3-1.2 (test code = BILT) SGOT/AST (test code U/L <34 = AST) SGPT/ALT (test code U/L 10-49 = ALT) ALKALINE U/L 46-116 PHOSPHATASE (test code = ALKP) CBC W/AUTO [id number] 18:10:00 Test Item Value Reference Range Interpretation Comments WHITE BLOOD CELL (test 6.5 x10 3/uL 4.8-10.8 N code = WBC) RED BLOOD CELL (test code 2.72 x10 6/uL 4.20-5.40 L = RBC) HEMOGLOBIN (test code = 9.8 g/dL 12.0-16.0 L HGB) HEMATOCRIT (test code = 31.4 % 37.0-47.0 L HCT) MEAN CELL VOLUME (test 115.4 fL 81.0-99.0 H code = MCV) MEAN CELL HGB (test code 36.0 pg 27-31 H = MCH) MEAN CELL HGB 31.2 G/DL 33-36.5 L CONCENTRATION (test code = MCHC) RED CELL DISTRIBUTION Test not performed % 12.9-16.9 WIDTH (test code = RDW) PLATELET COUNT (test code 218 x10 3/uL 150-440 N = PLT) MEAN PLATELET VOLUME 10.1 fL 8.9-12.4 N (test code = MPV) NEUTROPHIL % (test code = 88.1 % 42.2-75.2 H NT%) LYMPHOCYTE % (test code = 5.4 % 20.5-51.1 L LY%) MONOCYTE % (test code = 6.0 % 1.7-9.3 N MO%) EOSINOPHIL % (test code = 0.0 % 0.0-7.0 N EO%) BASOPHIL % (test code = 0.2 % 0-2.5 N BA%) NEUTROPHIL # (test code = 5.68 x10 3/uL 1.80-7.70 N NT#) LYMPHOCYTE # (test code = 0.35 x10 3/uL 1.00-4.80 L LY#) MONOCYTE # (test code = 0.39 x10 3/uL 0.00-0.80 N MO#) EOSINOPHIL # (test code = 0.00 x10 3/uL 0.00-0.45 N EO#) BASOPHIL # (test code = 0.01 x10 3/uL 0.0-0.20 N BA#) COMPREHENSIVE METABOLIC [id number] 18:09:00 Test Item Value Reference Range Interpretation Comments SODIUM (test code = NA) 146 mmol/L 136-145 H Plea se note: New Reference Range Apr 2020 POTASSIUM (test code = 3.9 mmol/L 3.5-5.1 N K) CHLORIDE (test code = 118 mmol/L 98-107 H Please note: New CL) Reference Range Apr 2020 CARBON DIOXIDE (test 20 mmol/L 20-31 N Please note: New code = CO2) Reference Range Apr 2020 GLUCOSE (test code = mg/dL 74-106 GLU) BLOOD UREA NITROGEN mg/dL 9-23 (test code = BUN) GLOMERULAR FILTRATION >60 RATE (test code = GFR) CREATININE (test code = mg/dL 0.55-1.02 CREAT) TOTAL PROTEIN (test g/dL 5.7-8.2 code = PROT) ALBUMIN (test code = g/dL 3.2-4.8 ALB) CALCIUM (test code = mg/dL 8.7-10.4 CA) BILIRUBIN TOTAL (test mg/dL 0.3-1.2 code = BILT) SGOT/AST (test code = U/L <34 AST) SGPT/ALT (test code = U/L 10-49 ALT) ALKALINE PHOSPHATASE U/L 46-116 (test code = ALKP) COMPREHENSIVE METABOLIC [id number] 18:08:00 Test Item Value Reference Range Interpretation Comments SODIUM (test code = NA) 146 mmol/L 136-145 H Plea se note: New Reference Range Apr 2020 POTASSIUM (test code = 3.9 mmol/L 3.5-5.1 N K) CHLORIDE (test code = 118 mmol/L 98-107 H Please note: New CL) Reference Range Apr 2020 CARBON DIOXIDE (test mmol/L 20-31 code = CO2) GLUCOSE (test code = mg/dL 74-106 GLU) BLOOD UREA NITROGEN mg/dL 9-23 (test code = BUN) GLOMERULAR FILTRATION >60 RATE (test code = GFR) CREATININE (test code = mg/dL 0.55-1.02 CREAT) TOTAL PROTEIN (test g/dL 5.7-8.2 code = PROT) ALBUMIN (test code = g/dL 3.2-4.8 ALB) CALCIUM (test code = mg/dL 8.7-10.4 CA) BILIRUBIN TOTAL (test mg/dL 0.3-1.2 code = BILT) SGOT/AST (test code = U/L <34 AST) SGPT/ALT (test code = U/L 10-49 ALT) ALKALINE PHOSPHATASE U/L 46-116 (test code = ALKP) HGB [id number] 15:52:00 Test Item Value Reference Range Interpretation Comments HEMOGLOBIN (test code = HGB) 8.8 g/dL 12.0-16.0 L HEMATOCRIT (test code = HCT) 28.5 % 37.0-47.0 L Spec Comments: DRAWN IN ORHGB [id number] 07:46:00 Test Item Value Reference Range Interpretation Comments HEMOGLOBIN (test code = 7.0 g/dL 12.0-16.0 L Crit ical Value HGB) reported toFirs t Name:AALIYAH Last Name:CELESTE AGUILAR READ BACK AND HIEU [facility], on 10/11/20, @ 074 6. HEMATOCRIT (test code = 22.9 % 37.0-47.0 L HCT) COVID Asymptomatic IH [id number] 11:42:00 Test Item Value Reference Interpretation Comments Range COVID Negative Negative A negative resu lt does not Asymptomatic IH preclude the SARS-COV-2 NTX (test code = viralinfect ion and should not COVNONPUINTX) be used as the sole basis forpatient haley gement decisions. Nega tive results must becombined with clinical observations, p atient history, andepidemiologi evangelista information. Vi ral levels in clinicalsamples below the detection limit of the assay could lead tone gative results. This test was p erformed using the [employer] Smart TM COVID-19 PCRassay. This test was developed and i ts performancechar acteristics were determined by [facility]. Thi s test has notbeen FDA eleno ared or approved. This test is authorized by t heFDA under Emergency Use Authorization(E UA). The EUA willremain in e ffect unless it is terminated o r revoked by FDA . Testing p arameters have not been valida is[place] for screeningasympt omatic patients. This test was validated accor ding to the FDA's guidanced ocument "Policy for Diagnostics testing in LaboratoriesCer tified to Perform High Co mplexity Testing under C ROULA". First test? UnknownEmployed in Healthcare? UnknownSymptomatic as defined by CDC? UnknownHospitalizeddue to COVID? UnknownIn ICU due to COVID? UnknownResident in a congregate care setting? Unknown? UnknownAge at collection: Y COMPREHENSIVE METABOLIC [id number] 17:13:00 Test Item Value Reference Range Interpretation Comments SODIUM (test code = 142 mmol/L 136-145 N Please n ote: New NA) Reference Range Apr 2020 POTASSIUM (test 4.3 mmol/L 3.5-5.1 N code = K) CHLORIDE (test code 110 mmol/L 98-107 H Please n ote: New = CL) Reference Range Apr 2020 CARBON DIOXIDE 29 mmol/L 20-31 N Please note: New (test code = CO2) Reference Range Apr 2020 GLUCOSE (test code 105 mg/dL 74-106 N Please no te: New = GLU) Reference Range Apr 2020 BLOOD UREA NITROGEN 11 mg/dL 9-23 N Please n ote: New (test code = BUN) Reference Range Apr 2020 GLOMERULAR >=60 max >60 The estimated FILTRATION RATE estimate glomerular (test code = GFR) filtration rate is computed usingpatient ra ce, age (>18), sex, and serum creatinin e. If anyof the ne eded data elements a re missing the Laboratory yris ot compute an estimation of t he glomerular filtration rate . CREATININE (test 0.80 mg/dL 0.55-1.02 N Please note : New code = CREAT) Reference Rang e Apr 2020 TOTAL PROTEIN (test 5.6 g/dL 5.7-8.2 L Please n ote: New code = PROT) Reference Range Apr 2020 ALBUMIN (test code 4.2 g/dL 3.2-4.8 N Please no te: New = ALB) Reference Range Apr 2020 CALCIUM (test code 8.6 mg/dL 8.7-10.4 L Please no te: New = CA) Reference Range Apr 2020 BILIRUBIN TOTAL 2.4 mg/dL 0.3-1.2 H Please note: New (test code = BILT) Reference Range Apr 2020 SGOT/AST (test code 17 U/L <34 N Please n ote: New = AST) Reference Range Apr 2020 SGPT/ALT (test code 11 U/L 10-49 N Please n ote: New = ALT) Reference Range Apr 2020 ALKALINE 96 U/L 46-116 N Please note: Ne w PHOSPHATASE (test Reference Range Feb code = ALKP) 2020 COMPREHENSIVE METABOLIC [id number] 17:12:00 Test Item Value Reference Range Interpretation Comments SODIUM (test code = 142 mmol/L 136-145 N Please n ote: New NA) Reference Range Apr 2020 POTASSIUM (test 4.3 mmol/L 3.5-5.1 N code = K) CHLORIDE (test code 110 mmol/L 98-107 H Please n ote: New = CL) Reference Range Apr 2020 CARBON DIOXIDE 29 mmol/L 20-31 N Please note: New (test code = CO2) Reference Range Apr 2020 GLUCOSE (test code 105 mg/dL 74-106 N Please no te: New = GLU) Reference Range Apr 2020 BLOOD UREA NITROGEN 11 mg/dL 9-23 N Please n ote: New (test code = BUN) Reference Range Apr 2020 GLOMERULAR >=60 max >60 The estimated FILTRATION RATE estimate glomerular (test code = GFR) filtration rate is computed usingpatient ra ce, age (>18), sex, and serum creatinin e. If anyof the ne eded data elements a re missing the Laboratory yris ot compute an estimation of t he glomerular filtration rate . CREATININE (test 0.80 mg/dL 0.55-1.02 N Please note : New code = CREAT) Reference Rang e Apr 2020 TOTAL PROTEIN (test g/dL 5.7-8.2 code = PROT) ALBUMIN (test code 4.2 g/dL 3.2-4.8 N Please no te: New = ALB) Reference Range Apr 2020 CALCIUM (test code 8.6 mg/dL 8.7-10.4 L Please no te: New = CA) Reference Range Apr 2020 BILIRUBIN TOTAL mg/dL 0.3-1.2 (test code = BILT) SGOT/AST (test code U/L <34 = AST) SGPT/ALT (test code U/L 10-49 = ALT) ALKALINE 96 U/L 46-116 N Please note: Ne w PHOSPHATASE (test Reference Range Feb code = ALKP) 2020 COMPREHENSIVE METABOLIC [id number] 17:11:00 Test Item Value Reference Range Interpretation Comments SODIUM (test code = 142 mmol/L 136-145 N Please n ote: New NA) Reference Range Apr 2020 POTASSIUM (test 4.3 mmol/L 3.5-5.1 N code = K) CHLORIDE (test code 110 mmol/L 98-107 H Please n ote: New = CL) Reference Range Apr 2020 CARBON DIOXIDE 29 mmol/L 20-31 N Please note: New (test code = CO2) Reference Range Apr 2020 GLUCOSE (test code 105 mg/dL 74-106 N Please no te: New = GLU) Reference Range Apr 2020 BLOOD UREA NITROGEN 11 mg/dL 9-23 N Please n ote: New (test code = BUN) Reference Range Apr 2020 GLOMERULAR >=60 max >60 The estimated FILTRATION RATE estimate glomerular (test code = GFR) filtration rate is computed usingpatient ra ce, age (>18), sex, and serum creatinin e. If anyof the ne eded data elements a re missing the Laboratory yris ot compute an estimation of t he glomerular filtration rate . CREATININE (test 0.80 mg/dL 0.55-1.02 N Please note : New code = CREAT) Reference Rang e Apr 2020 TOTAL PROTEIN (test g/dL 5.7-8.2 code = PROT) ALBUMIN (test code g/dL 3.2-4.8 = ALB) CALCIUM (test code 8.6 mg/dL 8.7-10.4 L Please no te: New = CA) Reference Range Apr 2020 BILIRUBIN TOTAL mg/dL 0.3-1.2 (test code = BILT) SGOT/AST (test code U/L <34 = AST) SGPT/ALT (test code U/L 10-49 = ALT) ALKALINE 96 U/L 46-116 N Please note: Ne w PHOSPHATASE (test Reference Range Feb code = ALKP) 2020 COMPREHENSIVE METABOLIC [id number] 17:05:00 Test Item Value Reference Range Interpretation Comments SODIUM (test code = NA) 142 mmol/L 136-145 N Plea se note: New Reference Range Apr 2020 POTASSIUM (test code = 4.3 mmol/L 3.5-5.1 N K) CHLORIDE (test code = 110 mmol/L 98-107 H Please note: New CL) Reference Range Apr 2020 CARBON DIOXIDE (test 29 mmol/L 20-31 N Please note: New code = CO2) Reference Range Apr 2020 GLUCOSE (test code = mg/dL 74-106 GLU) BLOOD UREA NITROGEN mg/dL 9-23 (test code = BUN) GLOMERULAR FILTRATION >60 RATE (test code = GFR) CREATININE (test code = mg/dL 0.55-1.02 CREAT) TOTAL PROTEIN (test g/dL 5.7-8.2 code = PROT) ALBUMIN (test code = g/dL 3.2-4.8 ALB) CALCIUM (test code = mg/dL 8.7-10.4 CA) BILIRUBIN TOTAL (test mg/dL 0.3-1.2 code = BILT) SGOT/AST (test code = U/L <34 AST) SGPT/ALT (test code = U/L 10-49 ALT) ALKALINE PHOSPHATASE U/L 46-116 (test code = ALKP) PROTHROMBIN [id number] 16:57:00 Test Item Value Reference Range Interpretation Comments PROTHROMBIN TIME 12.6 SECONDS 10.3-12.9 N PATIENT (test code = PTP) INTERNATIONAL 1.10 INR UNIT 0.9-1.11 N The INR is us eful only NORMAL RATIO (test for monit oring code = INR) anticoagulant therapy.It may be unreliable in t he initial phase o f antigoagulation and in unstable patien ts. Indication for Anticoagulation Recommend ed INR 1. Prevention o f venous thomboembolism 2.0-3.0in high -risk patients; treat ment of venousthrombosi s and pulmonary embol ism aftera course o f heparin; preven tion of systemicembolis m in a variety of cond itions, including atria l fibrillation an d prothetic tissu e heart valves, 2. Pros thetic mechanical hear t valves; 2.5-3.5recurren t systemic emboli sm. THROMBOPLASTIN TIME [id number] 16:57:00 Test Item Value Reference Range Interpretation Comments THROMBOPLASTIN TIME 29.0 SECONDS 23.8-34.8 N INTERPRE TATIVE PARTIAL (test code = DATA: erapeutic PTT) range: Unfractionated heparin:55 - 80 seconds Argatroban:1.5 to 3 times the basel ine PTT THROMBOPLASTIN TIME [id number] 16:55:00 Test Item Value Reference Range Interpretation Comments THROMBOPLASTIN TIME PARTIAL (test SECONDS 23.8-34.8 code = PTT) PROTHROMBIN [id number] 16:55:00 Test Item Value Reference Range Interpretation Comments PROTHROMBIN TIME 12.6 SECONDS 10.3-12.9 N PATIENT (test code = PTP) INTERNATIONAL 1.10 INR UNIT 0.9-1.11 N The INR is us eful only NORMAL RATIO (test for monit oring code = INR) anticoagulant therapy.It may be unreliable in t he initial phase o f antigoagulation and in unstable patien ts. Indication for Anticoagulation Recommend ed INR 1. Prevention o f venous thomboembolism 2.0-3.0in high -risk patients; treat ment of venousthrombosi s and pulmonary embol ism aftera course o f heparin; preven tion of systemicembolis m in a variety of cond itions, including atria l fibrillation an d prothetic tissu e heart valves, 2. Pros thetic mechanical hear t valves; 2.5-3.5recurren t systemic emboli sm. CBC W/AUTO [id number] 16:48:00 Test Item Value Reference Range Interpretation Comments WHITE BLOOD CELL (test code = 3.8 x10 3/uL 4.8-10.8 L WBC) RED BLOOD CELL (test code = 1.91 x10 6/uL 4.20-5.40 L RBC) HEMOGLOBIN (test code = HGB) 7.7 g/dL 12.0-16.0 L HEMATOCRIT (test code = HCT) 25.7 % 37.0-47.0 L MEAN CELL VOLUME (test code = 134.6 fL 81.0-99.0 H MCV) MEAN CELL HGB (test code = MCH) 40.3 pg 27-31 H MEAN CELL HGB CONCENTRATION 30.0 G/DL 33-36.5 L (test code = MCHC) RED CELL DISTRIBUTION WIDTH 15.4 % 12.9-16.9 N (test code = RDW) PLATELET COUNT (test code = 230 x10 3/uL 150-440 N PLT) MEAN PLATELET VOLUME (test code 10.1 fL 8.9-12.4 N = MPV) NEUTROPHIL % (test code = NT%) 59.5 % 42.2-75.2 N LYMPHOCYTE % (test code = LY%) 30.5 % 20.5-51.1 N MONOCYTE % (test code = MO%) 8.2 % 1.7-9.3 N EOSINOPHIL % (test code = EO%) 0.8 % 0.0-7.0 N BASOPHIL % (test code = BA%) 0.5 % 0-2.5 N NEUTROPHIL # (test code = NT#) 2.26 x10 3/uL 1.80-7.70 N LYMPHOCYTE # (test code = LY#) 1.16 x10 3/uL 1.00-4.80 N MONOCYTE # (test code = MO#) 0.31 x10 3/uL 0.00-0.80 N EOSINOPHIL # (test code = EO#) 0.03 x10 3/uL 0.00-0.45 N BASOPHIL # (test code = BA#) 0.02 x10 3/uL 0.0-0.20 N CHEM [id number] 09:56:53513Ynpwghni HermannCHEM NBPCM5768-74-72 09:56:0093 [facility] PKMEL0500-94-51 09:56:008[facility] PANEL 2019-01-13 09:56:000.86[facility] RNUAH9386-48-93 09:56:32891Fqyedbiy HermannCHEM MACUE2651-50-30 09:56:003.6[facility] MBPZE9860-66-38 09:56:77932Kmaeitai HermannCHEM NRAAH9286-27-24 09:56:0027[facility] PSYXL9631-61-34 09:56:008.0[facility]CHE[facility] XDNRY2579-54-06 09:56:006.3 [facility] HEBEC9604-02-89 09:56:003.5[facility]annCHE[facility] PANEL 2019-01-13 09:56:0010[facility]annCHE[facility] QIPOO4526-28-42 09:56:0013[facility]annCHE[facility] XZJBG6373-19-30 09:56:0085[facility] YMPXO4205-18-15 09:56:002.2[facility]annCHE[facility] DNPWY5622-66-08 09:56:0068[facility] JRROC3387-90-32 09:56:009.6[facility]CHE[facility] HHVMM7246-83-65 09:56:00 Test Item Value Reference Range Interpretation Comments B/C Ratio (test code = B/C Ratio) 9 1 6-25 [facility] [id number] 09:56:002.8[facility]annCHEM PANEL 2019-01-13 09:56:00 Test Item Value Reference Range Interpretation Comments A/G Ratio (test code = A/G Ratio) 1.2 1 0.7-1.6 [facility] YTGBI6351-16-06 09:56:002.6[facility]annCHE[facility] PANEL 2019-01-13 09:56:003.2[facility] WlljnbcUMZNZLZGNJ9069-16-21 09:56:003.6[facility] EhimppsAGMJLSCWZT3225-86-12 09:56:002.15[facility] GughuzjVHBIRNYYLY6595-49-49 09:56:007.1[facility] UvnjpnrAYRSTHKQUQ4482-73-63 09:56:0021.9[facility] FCCIOJYZRZ0497-40-51 09:56:26649.0[facility] DiwgxlqAOUSODJCNW6447-58-30 09:56:00 Test Item Value Reference Range Interpretation Comments MCH (test code = MCH) 33.2 pg 27.0-31.0 [facility] KwzcjnnGJNTARAQPV0584-29-18 09:56:0032.5[facility]annHEMATOLOGY 2019-01-13 09:56:0019.9[facility] FqqqlcuZCQPKCCYRR2421-28-38 09:56:12998Lcmqnunt DzvdqgkCHEEECUIRP0014-41-78 09:56:007.2[facility]annCHEM YNBRI2817-13-74 09:56:21924Wovugqat PjatuzxGDWYARMPBP2412-78-46 09:56:0057.3[facility] JXEHCMCHCA1840-78-94 09:56:0032.0[facility] JkwjsfmOZUCVLZJLY6358-93-13 09:56:00 9.6[facility] FdwjscwTCHFHRPUPM7044-41-81 09:56:000.7[facility]annHEMATOLOGY 2019-01-13 09:56:000.4[facility] EwizefsQSKTDNTRQN1436-54-86 09:56:002.1[facility] NtkjphjKLLTDIBWWG4652-82-50 09:56:001.2[facility] VdjypubSAFCHBBHKG8207-90-99 09:56:000.4[facility]annCHEM LRVCX8146-64-12 09:56:0093[facility]annCHE[facility] GDEGA0892-14-68 09:56:008[facility]CHE[facility] PFGPD9974-90-37 09:56:000.86 [facility] RSOPN8122-09-32 09:56:58810Kzpbybly HermannCHEM PANEL 2019-01-13 09:56:003.6[facility]annCHE[facility] NWGQH2921-18-46 09:56:84519Olovhnkc HermannCHEM IZQYV8370-27-91 09:56:0027[facility]CHE[facility] DFRTE8526-14-97 09:56:008.0[facility]CHE[facility] HMVEL1604-90-35 09:56:006.3[facility] OPCML2321-72-84 09:56:003.5[facility]CHE[facility] ZMSQC4480-70-20 09:56:0010 [facility] DRLQV2342-90-08 09:56:0013[facility]annCHEM PANEL 2019-01-13 09:56:0085[facility]annCHE[facility] KGSAD7224-31-39 09:56:002.2[facility]annCHE[facility] MSVIZ7626-66-57 09:56:0068[facility]CHE[facility] OZJCX6533-33-97 09:56:009.6[facility]annCHE[facility] IBOCF1649-75-20 09:56:00 Test Item Value Reference Range Interpretation Comments B/C Ratio (test code = B/C Ratio) 9 1 6-25 [facility] EEUNK9233-96-29 09:56:002.8[facility]annCHEM PANEL 2019-01-13 09:56:00 Test Item Value Reference Range Interpretation Comments A/G Ratio (test code = A/G Ratio) 1.2 1 0.7-1.6 [facility] FOMYK5454-56-13 09:56:002.6[facility]annCHEM PANEL 2019-01-13 09:56:003.2[facility] CdfyamyIMSBNQMTHZ9601-01-37 09:56:003.6[facility] CfbcijuYDDDIYWLGN7426-15-72 09:56:002.15[facility] XghmxpcIWZDPPHQQD9342-92-01 09:56:007.1[facility] MoxtjwnAPBCHWTBOH5629-10-19 09:56:0021.9[facility] JIMVQBTLQO3027-05-57 09:56:72003.0[facility] GykmnwcVTKOWUVWOH8309-04-26 09:56:00 Test Item Value Reference Range Interpretation Comments MCH (test code = MCH) 33.2 pg 27.0-31.0 [facility] MkjlvnsDKUSWSYZRK5035-71-88 09:56:0032.5[facility]annHEMATOLOGY 2019-01-13 09:56:0019.9[facility] XwxdydxIBHYXIZIUH9894-83-13 09:56:29388Uuyvbwjq CyequoeJFRCJFDJUV3467-73-06 09:56:007.2[facility] CxscsexXCGNVHZGAK7355-28-02 09:56:0057.3[facility] FnrqfduYOOICMTJDO1946-30-68 09:56:0032.0[facility] CBOICKONZP1671-88-82 09:56:009.6[facility] HcsbfvmCVQGMDPSVU4856-75-00 09:56:000.7 [facility] XidueuqBMSBMZEFII7768-61-35 09:56:000.4[facility]annHEMATOLOGY 2019-01-13 09:56:002.1[facility] EhttxcjQQDKYBBVGQ0186-49-82 09:56:001.2[facility] UejtjgkWXGNHXUALA4135-09-82 09:56:000.4[facility]annCHEM ZKDVP8265-14-87 09:56:86159Mmekghmk HermannCHEM JJDNQ8312-59-33 09:56:0093[facility]annCHEM GHHKY6867-44-62 09:56:008[facility]annCHE[facility] QSCFE2927-98-15 09:56:000.86 [facility]CHE[facility] YSSHR3402-11-71 09:56:54681Ppqkvppg HermannCHEM PANEL 2019-01-13 09:56:003.6[facility]annCHE[facility] NFBGV8357-69-87 09:56:29592Iuercquy HermannCHEM GBSZZ3409-79-34 09:56:0027[facility]annCHE[facility] SYNHA7676-65-85 09:56:008.0[facility]annCHE[facility] SKVAT7246-36-25 09:56:006.3[facility]annCHE[facility] BAEUI9995-49-94 09:56:003.5[facility]annCHE[facility] JGAUL3584-98-54 09:56:0010 [facility]CHE[facility] DNCRM2352-42-39 09:56:0013[facility]annCHEM PANEL 2019-01-13 09:56:0085[facility]annCHE[facility] ADMEV0266-02-65 09:56:002.2[facility]annCHE[facility] FWXRX9420-40-88 09:56:0068[facility]CHE[facility] CCOGY9469-59-30 09:56:009.6[facility]annCHE[facility] XCJKQ3574-17-01 09:56:00 Test Item Value Reference Range Interpretation Comments B/C Ratio (test code = B/C Ratio) 9 1 6-25 [facility]CHE[facility] FIRCV5962-47-52 09:56:002.8[facility]annCHEM PANEL 2019-01-13 09:56:00 Test Item Value Reference Range Interpretation Comments A/G Ratio (test code = A/G Ratio) 1.2 1 0.7-1.6 [facility] SHQPH1323-16-55 09:56:002.6[facility]annCHEM PANEL 2019-01-13 09:56:003.2[facility] PgllivrNGHYRQIKED8106-08-34 09:56:003.6[facility] QvyqfktKCXDQUYFTF0283-17-45 09:56:002.15[facility] XkziradURWDZDWJKI4856-27-28 09:56:007.1[facility] WzduiywQYOBMIWGYD2327-15-05 09:56:0021.9[facility] EOHCDJHWVH8066-69-96 09:56:05903.0[facility] NnqbqjgKKDTWGSXBX9784-04-54 09:56:00 Test Item Value Reference Range Interpretation Comments MCH (test code = MCH) 33.2 pg 27.0-31.0 [facility] ZcocpnrTTAAYXIUKL4504-78-69 09:56:0032.5[facility] HermannHEMATOLOGY 2019-01-13 09:56:0019.9[facility] FyhmwsaXIWLUDWPPY6835-54-41 09:56:89649Jofqoydl EsevncuSHKCZBIIIO0604-77-79 09:56:007.2[facility] McrfaqoJTVNPVWBNV5425-35-87 09:56:0057.3[facility] RxctwhgJCQFPMYGFO7075-10-45 09:56:0032.0[facility] TCPDDNDDGA2033-10-66 09:56:009.6[facility] SeubdryOOIOCHTPAM0588-59-33 09:56:000.7 [facility] PvrlggkLYWMZFDTNO7845-95-54 09:56:000.4[facility]annHEMATOLOGY 2019-01-13 09:56:002.1[facility] UpoyqntJORHVIBQCK0578-74-36 09:56:001.2[facility] PkojokpMRKRJDKZNW6655-07-74 09:56:000.4[facility] HermannCARDIAC ZLLUQDK1390-76-32 10:44:000.19[facility]annCHEM FYGGR3703-57-50 10:44:43532Yggxgeye [place] UIZIEJVJGZ3068-66-58 10:44:003.7[facility] MmricomBCBJOXEBUJ6772-91-35 10:44:00 2.03[facility] KxfsnkwDZXQXWTILZ5529-27-76 10:44:006.8[facility]annHEMATOLOGY 2019-01-12 10:44:0020.0[facility] LkrhtfcZSEJFSUDNS5335-03-48 10:44:0098.8[facility] FlfhkbbQYCYFXUHTY7482-80-12 10:44:00 Test Item Value Reference Range Interpretation Comments MCH (test code = MCH) 33.5 pg 27.0-31.0 [facility] SdlawoiPUETHKAAIC0539-04-61 10:44:0033.9[facility]annHEMATOLOGY 2019-01-12 10:44:0019.3[facility] VtccpshMHKRPQZLVI9580-23-60 10:44:34006Zphzadhe EgoaddnFAAOAOHLCS6111-96-99 10:44:006.8[facility] AtdbrpzGYWEYFABMK4561-79-05 10:44:0063.9[facility] AznxfofNOSSRSXSPA6676-25-30 10:44:0027.6[facility] ZKWDDSPVKV0706-19-47 10:44:007.6[facility] NqfveiaSVWUWHWAQY0089-80-09 10:44:000.4 [facility] YtjaockRRXILEHODS2588-75-88 10:44:000.5[facility]annHEMATOLOGY 2019-01-12 10:44:002.4[facility] TvbwivoTLQWMZPMXQ8123-29-77 10:44:001.0[facility] FrzzmnaRTRVSUKPWD7332-01-08 10:44:000.3[facility] TaavrrdCPKXQCKURG9842-11-80 10:44:00 Test Item Value Reference Range Interpretation Comments INR (test code = INR) 1.15 1 0.85-1.17 [facility] YhvdpxpEBNNJEIJDQ5425-74-44 10:44:00 Test Item Value Reference Range Interpretation Comments PT (test code = PT) 14.5 s 12.0-14.7 [facility] BugpkpeDTMDFQXRUA1929-75-66 10:44:00 Test Item Value Reference Range Interpretation Comments PT Baseline (test code = PT Baseline) 14.0 s 12.0-14.7 [facility] BqfgttqAPTJEZRDEZ8503-10-39 10:44:00Negative (01/12/19 4:44 AM)[facility] EdgysqmNVKXLRXOFW7776-61-39 10:44:00Negative 8(01/12/19 4:44 AM)[facility] CARDIAC CKYPYYB9561-18-49 10:44:000.19[facility]annCHEM OXBKK9138-41-57 10:44:21597Sdflrmxu UaojkeyBLXSQGLEWF7416-42-37 10:44:003.7[facility] RXCUUJYBSB6276-83-01 10:44:002.03[facility] DtxzrskFDKDKOWVNP9887-99-16 10:44:00 6.8[facility] JfvbizvEHSMONQTBQ0419-87-68 10:44:0020.0[facility]annHEMATOLOGY 2019-01-12 10:44:0098.8[facility] UnzfufgKMBTVXRIIK2626-96-69 10:44:00 Test Item Value Reference Range Interpretation Comments MCH (test code = MCH) 33.5 pg 27.0-31.0 [facility] NazscpuHAEMORIFPH8950-70-04 10:44:0033.9[facility]annHEMATOLOGY 2019-01-12 10:44:0019.3[facility] AwpvnftAJANBMHSUH2405-99-92 10:44:57564Pcgwlnja SamgoknQKWWWUWAJO9272-80-96 10:44:006.8[facility] JsevszrUYXDTSPGVT2944-80-83 10:44:0063.9[facility] HrlpypqKUKBZAZHAO3448-17-66 10:44:0027.6[facility] IUSFSCIXKS5192-98-42 10:44:007.6[facility] AnmhixbURJXINYFTU1774-04-27 10:44:000.4 [facility] GfhtytmLYQCRXFWFL5415-23-07 10:44:000.5[facility]annHEMATOLOGY 2019-01-12 10:44:002.4[facility] GznztxbGEGOPFKMPZ2406-97-89 10:44:001.0[facility] VezesjcSFLEDJEKLA6961-11-39 10:44:000.3[facility] YcmeabyTCWHAPTBXK1237-61-24 10:44:00 Test Item Value Reference Range Interpretation Comments INR (test code = INR) 1.15 1 0.85-1.17 [facility] GqwjaejCPLLYJJTWY8162-63-48 10:44:00 Test Item Value Reference Range Interpretation Comments PT (test code = PT) 14.5 s 12.0-14.7 [facility] VywbhjdDNOLUZHZBG4816-09-46 10:44:00 Test Item Value Reference Range Interpretation Comments PT Baseline (test code = PT Baseline) 14.0 s 12.0-14.7 [facility] KndtozyIXVEOMMDPD0759-32-02 10:44:00Negative (01/12/19 4:44 AM)[facility] GcnmzgiOVDFYFQAOF7879-83-09 10:44:00Negative 8(01/12/19 4:44 AM)[facility] CARDIAC BUKXRHS5802-80-72 10:44:000.19[facility] HermannCHEM VUTKF7245-23-95 10:44:09427Agpuswwp CucoovhXHBKLLRRGY2516-15-62 10:44:003.7[facility] CPAIZJGYIM7593-19-40 10:44:002.03[facility] EcanagpNRCVXNAICP6002-56-96 10:44:00 6.8[facility] IwkeugcCOHWTHJZJH1368-98-88 10:44:0020.0[facility]annHEMATOLOGY 2019-01-12 10:44:0098.8[facility] WzufqcwFVRIQZMVVH2253-51-61 10:44:00 Test Item Value Reference Range Interpretation Comments MCH (test code = MCH) 33.5 pg 27.0-31.0 [facility] VgncbabQYQXUMBGIQ3917-79-89 10:44:0033.9[facility]annHEMATOLOGY 2019-01-12 10:44:0019.3[facility] XbjyuysWHMUZGJVVA9891-54-30 10:44:78128Jzssftuz QiwwilhXWBFNZZJKG6717-98-78 10:44:006.8[facility] StktrwjZIRCSJOKTA1866-19-93 10:44:0063.9[facility] ExltmusDDSDVKOEEE9885-45-28 10:44:0027.6[facility] IDSDXMQMPS2055-45-11 10:44:007.6[facility] DajuhaeSUBQQNLACU8892-10-60 10:44:000.4 [facility] SdbvomeKMRRXYWNAN1404-07-21 10:44:000.5[facility]annHEMATOLOGY 2019-01-12 10:44:002.4[facility] OwrgadmWMOQTZCLPB5991-53-75 10:44:001.0[facility] FmcyahqUMQBSADEPW4536-26-64 10:44:000.3[facility] QfxudlnCTEBDOMGYX3462-97-38 10:44:00 Test Item Value Reference Range Interpretation Comments INR (test code = INR) 1.15 1 0.85-1.17 [facility] NlbhnvxOAVHHATLAR3110-94-16 10:44:00 Test Item Value Reference Range Interpretation Comments PT (test code = PT) 14.5 s 12.0-14.7 [facility] UmoqyweOGAYIKGOWH1949-73-00 10:44:00 Test Item Value Reference Range Interpretation Comments PT Baseline (test code = PT Baseline) 14.0 s 12.0-14.7 [facility] YterkrkEIAGOWOTPJ2584-72-31 10:44:00Negative (01/12/19 4:44 AM)[facility] PvexcpqMQZCGOGVSA6542-57-40 10:44:00Negative 8(01/12/19 4:44 AM)[facility] WFEPRDCCYC8049-37-02 03:51:007.1[facility] TihlfhmHRTOIVGLQD2568-97-68 03:51:00 20.9[facility] PqctgiqQRBAZMXLAY7208-35-85 03:51:007.1[facility]annHEMATOLOGY 2019-01-12 03:51:0020.9[facility] LamsereJLTXCSXGUG6004-88-02 03:51:007.1[facility] KxhcehfXHKGYDOYEO3046-80-73 03:51:0020.9[facility] HermannCARDIAC ENZYMES 2019-01-12 03:43:000.20[facility] ByekarqWKMBEPGDJS7802-08-02 03:43:0032.2[facility]annURINE AND QGNZM2687-16-86 03:43:00Negative (01/11/19 9:43 PM)[facility]annCARDIAC VKQVQAD7286-80-31 03:43:000.20[facility] HermannIMMUNOLOGY 2019-01-12 03:43:0032.2[facility]annURINE AND FZTOX0767-68-25 03:43:00 Negative (01/11/19 9:43 PM)[facility]annCARDIAC FLZEUYJ8075-15-95 03:43:00 0.20[facility] KinkpijXGQSUGRZIG9017-58-64 03:43:0032.2[facility]annURINE AND RALTR0092-95-18 03:43:00Negative (01/11/19 9:43 PM)[facility]annBL[facility]OD BANK PKJJCTM9772-01-14 20:20:08Product available 5(01/11/19 2:20 PM)[facility] BLO[facility] B[facility] VEQYZRK1324-72-11 20:20:08Product available 5(01/11/19 2:20 PM) [facility] CHCFSIP1371-95-36 20:20:08Product available 5(01/11/19 2:20 PM)[facility]annCHEM CVGGR0069-06-18 18:03:000.27[facility] LxroetzDLCVBINLAW6170-38-18 18:03:00<8[facility]annCARDIAC ENZYMES 2019-01-11 18:03:10491Icctaqwq HermannCARDIAC DBVWDVD8294-55-34 18:03:000.25 [facility]annCHEM PCNOK4143-82-40 18:03:000.27[facility] HermannIMMUNOLOGY 2019-01-11 18:03:00<8[facility]annCARDIAC SWCUYSI2336-17-64 18:03:54654 [facility]annCARDIAC JCHDGZA3664-96-00 18:03:91313Lmtvczwj HermannCARDIAC JZUNVBQ0705-12-80 18:03:000.25[facility] HermannCHEM PWKDZ9183-46-61 18:03:000.27 [facility] LorazolRSZSWXFGTS1146-42-50 18:03:00<8[facility]annCARDIAC KGPIETJ3662-47-71 18:03:000.25[facility]annBLOOD BANK GXKIANA0518-21-01 09:47:27Product available 6(01/11/19 3:47 AM)[facility]annBL[facility]OD BANK RESULTS 2019-01-11 09:47:27Product available 6(01/11/19 3:47 AM)[facility]BL[facility] B[facility] WWFETUO7925-95-34 09:47:27Product available 6(01/11/19 3:47 AM)[facility]annCHEM LRAAX0580-04-36 09:16:88206Zjsqkpvx HermannCHEM FOCZS2210-99-85 09:16:0011[facility]annCHEM YKBCS6092-32-31 09:16:001.15[facility] HermannCHEM PLEST1788-75-98 09:16:61846Ydejpsnm HermannCHEM JLQRU0434-64-56 09:16:003.7 [facility]annCHEM CZHJH2868-20-78 09:16:43180Pyovblsp HermannCHEM PANEL 2019-01-11 09:16:0026[facility] HermannCHEM CZJNG1980-98-05 09:16:008.0[facility]annCHEM BYEQI6296-31-15 09:16:0010.7[facility]annCHEM QGQQK9308-66-43 09:16:0048[facility]annCHEM DUIRQ4278-74-07 09:16:002.3[facility]annCHEM KXTKF9556-63-85 09:16:002.9[facility] BxmqilhWPANSOHTIY2256-44-03 09:16:005.7 [facility] CfabsrrZUDFDMBKSW6003-54-75 09:16:001.74[facility]annHEMATOLOGY 2019-01-11 09:16:15294.0[facility]annCHEM TRNOB4872-68-22 09:16:56307Lluejudb BfibnzmGDQSGUHIDX9771-26-67 09:16:00 Test Item Value Reference Range Interpretation Comments MCH (test code = MCH) 34.7 pg 27.0-31.0 [facility]CHE[facility] HLZBD3380-00-80 09:16:0011[facility]annCHEM PANEL 2019-01-11 09:16:001.15[facility]annCHEM ZRKWS0155-79-93 09:16:66938Xctqcglc HermannCHEM XMXVQ4013-22-69 09:16:003.7[facility]annCHEM JFXFX8102-75-64 09:16:54658Lynmqjdf HermannCHEM PQBBZ2000-07-74 09:16:0026[facility]annCHEM FKBPR1560-67-81 09:16:008.0[facility]annCHEM LUUPH6057-28-64 09:16:0010.7 [facility]annCHE[facility] BXAQM0307-88-63 09:16:0048[facility]annCHEM PANEL 2019-01-11 09:16:002.3[facility]annCHEM YUTCZ2355-82-23 09:16:002.9[facility] JrgnjqwPCKXTKTVXU9179-67-37 09:16:005.7[facility] JsmffebTAIBMYVPPR5494-42-20 09:16:001.74[facility] LhcxlncUTKXHFAJUF4885-78-00 09:16:85331.0[facility] PAXXARAALU7159-55-93 09:16:00 Test Item Value Reference Range Interpretation Comments MCH (test code = MCH) 34.7 pg 27.0-31.0 [facility] VzcyfnqPRCUFZBVFY3096-07-92 09:16:0033.1[facility]annHEMATOLOGY 2019-01-11 09:16:0032.8[facility] WdscanwUGDOUBEFYX1823-41-39 09:16:90141Sscjshpl JuuekqgAHORUJKCSV8255-41-24 09:16:0033.1[facility] OugndvsYLVEFPKZFS9615-89-29 09:16:006.8[facility] HramjqcZDSLCNCINC9649-28-90 09:16:003.6[facility] YRBOQWCEZD9092-96-05 09:16:001.5[facility] HqcrtabQQOYLAQVTI3936-95-02 09:16:000.2 [facility] JercytqSEWWQBYZJZ2143-03-37 09:16:0061.0[facility]annHEMATOLOGY 2019-01-11 09:16:003.0[facility] BwgoovjZZYEZXGVYD4284-95-78 09:16:0026.0[facility] PbdcdezOQZBZMUVEV5270-08-96 09:16:003.0[facility] IreggzjRDGMWSTDBA9443-74-67 09:16:002.0[facility] AsvpkuiZNIYZPTECT0213-31-48 09:16:005.0[facility] AXEIRLXWMI7928-73-80 09:16:000.0[facility] PkwvexjLRGEBKLRKM9224-57-87 09:16:001 [facility] UofmkgyETVALUIOCQ0483-94-12 09:16:00Normal (01/11/19 3:16 AM)[facility] JfjwfkuCGBQZZWYKM6647-10-73 09:16:003+ *ABN*(01/11/19 3:16 AM)[facility] SCFFVABBXD1004-41-83 09:16:001+ (01/11/19 3:16 AM)[facility]annHEMATOLOGY 2019-01-11 09:16:00Moderate *ABN*(01/11/19 3:16 AM)[facility]HE[facility]OLOGY 2019-01-11 09:16:00Moderate *ABN*(01/11/19 3:16 AM)[facility]annHEMATOLOGY 2019-01-11 09:16:00Moderate *ABN*(01/11/19 3:16 AM)[facility]HE[facility]OLOGY 2019-01-11 09:16:001-3 per HPF (01/11/19 3:16 AM)[facility]HEMATOLOGY 2019-01-11 09:16:0032.8[facility] HlmfgarIITPORCHEA7968-72-91 09:16:64999Kadmaooo JibyvkbWZQZLQQHXJ7103-08-28 09:16:006.8[facility] BethwhwGSZVCNAXIZ7256-07-24 09:16:003.6[facility] IllmgzpCQSHOYPEYY6724-68-53 09:16:001.5[facility] LNQPYYMGPE4189-62-04 09:16:000.2[facility] TclvpeyCISJQEFPRN0392-63-07 09:16:00 61.0[facility] ElyhgtrMKTXLTYPLQ7551-81-26 09:16:003.0[facility]annCHEM PANEL 2019-01-11 09:16:44499Qjwnfokb HermannCHEM NUQSF5776-83-95 09:16:0011[facility]annCHEM XHNYY9325-26-24 09:16:001.15[facility]annCHEM DJMDT9298-38-60 09:16:48132Gytrowct HermannCHEM LZVXW5422-02-92 09:16:003.7[facility]annCHEM KWIBL6707-49-65 09:16:95608Nqcmlequ HermannCHEM UZKEE6120-80-86 09:16:0026 [facility]CHE[facility] EDYTO2286-40-68 09:16:008.0[facility]annCHEM PANEL 2019-01-11 09:16:0010.7[facility]annCHEM PEVLH1583-59-10 09:16:0048[facility]annCHEM PFCSS9750-38-49 09:16:002.3[facility]annCHEM CMKPJ8996-35-24 09:16:002.9[facility] VwabyqxGWICSADBSY3972-92-61 09:16:005.7[facility] QOKOIZDSJQ9728-63-40 09:16:001.74[facility] KilfahdMVNXUWFFER6077-27-01 09:16:00 105.0[facility] LdjrebcWCPKFSHGWJ8680-40-48 09:16:0026.0[facility]annHEMATOLOGY 2019-01-11 09:16:00 Test Item Value Reference Range Interpretation Comments MCH (test code = MCH) 34.7 pg 27.0-31.0 [facility] NjdyordGLANFDUDIR0133-39-78 09:16:0033.1[facility]annHEMATOLOGY 2019-01-11 09:16:0032.8[facility] ZhyfdulLTCVHVQBUG0491-81-82 09:16:10641Xffzauza NyrcevhFENFTUCELE1955-11-32 09:16:006.8[facility] VwxwissRBYSEPDQZH1261-40-84 09:16:003.6[facility] HilxwrmCSHTCRALPT2875-22-58 09:16:001.5[facility] DTRPKZFJZX4504-12-82 09:16:000.2[facility] KxqfxflLIFQWOWNMZ3705-96-87 09:16:00 61.0[facility] UfabbidYMJKSHWJGY9552-95-14 09:16:003.0[facility]annHEMATOLOGY 2019-01-11 09:16:0026.0[facility] ImnohovYPLPZFSAFV7049-85-10 09:16:003.0[facility] IdcybhqLBKQCEJUSJ3439-63-97 09:16:002.0[facility] MspgfrdQSQISHFOWD8465-70-37 09:16:005.0[facility] UgevlgbAQVTKEJHIE4878-46-12 09:16:000.0[facility] QYHEBYTYQV0809-75-47 09:16:001[facility] IcbtdypYPYGRSQPBG7329-16-49 09:16:00 Normal (01/11/19 3:16 AM)[facility] XwcminuFNJDUPTCWA9716-46-19 09:16:003+ *ABN*(01/11/19 3:16 AM)[facility] HtssvqbNGURGYVYYF9746-02-14 09:16:001+ (01/11/19 3:16 AM)[facility] BovecbeSRWBEAFKYG9529-54-96 09:16:00Moderate *ABN*(01/11/19 3:16 AM)[facility] BftaxbfXFKOXXGCGP4236-98-04 09:16:003.0[facility] XIMHDTNUQM8519-29-26 09:16:00Moderate *ABN*(01/11/19 3:16 AM)[facility] CCQNQUHKSO6137-21-75 09:16:00Moderate *ABN*(01/11/19 3:16 AM)[facility] UYHMVEJYZG6046-63-55 09:16:001-3 per HPF (01/11/19 3:16 AM)[facility] EUYPLWAQPV0266-16-24 09:16:002.0[facility] SsktkxfZKZHOQPPRH0223-00-95 09:16:005.0 [facility] HgwekjvYVSNREEEOD1199-14-50 09:16:000.0[facility] HermannHEMATOLOGY 2019-01-11 09:16:001[facility] IxehfrhYHFECDGXSQ8754-94-23 09:16:00Normal (01/11/19 3:16 AM)[facility] FuwmdxoCWBCTKLATR1768-35-06 09:16:003+ *ABN*(01/11/19 3:16 AM)[facility] JodkeutEAXQEETSIZ9213-21-25 09:16:001+ (01/11/19 3:16 AM) [facility] VdktcdkUBMMQMSCDF6340-07-87 09:16:00Moderate *ABN*(01/11/19 3:16 AM) [facility] UradkvqQOVVDAIKGU2179-95-78 09:16:00Moderate *ABN*(01/11/19 3:16 AM) [facility] GnbvdnoSIRPIPDRAE9938-65-64 09:16:00Moderate *ABN*(01/11/19 3:16 AM) [facility] UlburgsUTJHXPPVWY9324-64-11 09:16:001-3 per HPF (01/11/19 3:16 AM) [facility] HermannBACTERIAL - ZWOHJWGD1863-51-30 01:18:00Positive 1*ABN*(01/10/19 7:18 PM)[facility] XIPYUAI9886-31-87 01:18:00Negative (01/10/19 7:18 PM)[facility] VHVGIWO5800-97-53 01:18:00Negative (01/10/19 7:18 PM)[facility] HermannBACTERIAL - KXIIHITI0376-42-74 01:18:00Positive 1*ABN*(01/10/19 7:18 PM)[facility] ODXAXNL0097-21-68 01:18:00 Negative (01/10/19 7:18 PM)[facility] FUWULCI9651-18-10 01:18:00 Negative (01/10/19 7:18 PM)[facility]annBACTERIAL - PJMLSKPK7639-04-40 01:18:00Positive 1*ABN*(01/10/19 7:18 PM)[facility] RESULTS 2019-01-11 01:18:00Negative (01/10/19 7:18 PM)[facility] RESULTS 2019-01-11 01:18:00Negative (01/10/19 7:18 PM)[facility] HermannANEMIA STUDY 2019-01-11 01:08:05940Tadzwxie HermannANEMIA FSENY2290-69-31 01:08:0095[facility]annANEMIA WJSLF1778-81-44 01:08:0059[facility] HermannANEMIA JKJWN5385-47-88 01:08:0010.9[facility] HermannANEMIA VLERS8615-59-67 01:08:66943Bxsukuli Ghanshyam BLOOD BANK GJWGMRG5089-72-62 01:08:00Negative (01/10/19 7:08 PM)[facility] B[facility]OD [facility] NPGQMSL5357-07-98 01:08:00Product available 7(01/10/19 7:08 PM) [facility]annCHEM ZNBPG7503-88-12 01:08:07220Jlvdwuot HermannCHEM PANEL 2019-01-11 01:08:85777Ngrprxmi HermannCHEM WUYRQ4304-39-36 01:08:0011[facility]annCHEM FECQP5476-93-65 01:08:001.32[facility]annCHEM MCXHZ5255-11-01 01:08:89628Baymzxbr HermannCHEM SYQEB1685-23-01 01:08:003.7[facility]annCHEM WAWQC1749-95-20 01:08:55078Kvvnxzrm HermannCHEM YTMHK1530-98-99 01:08:0026 [facility]CHE[facility] YFFXH5517-90-59 01:08:008.5[facility]annCHEM PANEL 2019-01-11 01:08:006.8[facility]annCHEM WTVAU6649-79-05 01:08:003.9[facility]annCHEM XJGRK7456-06-47 01:08:0016[facility]annCHEM LRBOT1451-47-28 01:08:0028[facility]annCHEM HAWOP2235-20-43 01:08:0096[facility]annCHEM DPLOK7319-74-46 01:08:004.3[facility]annCHEM QQRNS0913-86-95 01:08:0041 [facility] HermannCHEM VTQJW3646-02-15 01:08:0010.7[facility] HermannCHEM PANEL 2019-01-11 01:08:00 Test Item Value Reference Range Interpretation Comments B/C Ratio (test code = B/C Ratio) 8 1 6-25 [facility] YHTIX2396-33-91 01:08:002.9[facility]annCHEM PANEL 2019-01-11 01:08:00 Test Item Value Reference Range Interpretation Comments A/G Ratio (test code = A/G Ratio) 1.3 1 0.7-1.6 [facility] CenterIafvitpVTZEWLRRNF4370-28-20 01:08:0017.3[facility]annHEMATOLOGY 2019-01-11 01:08:00 Test Item Value Reference Range Interpretation Comments PT (test code = PT) 15.2 s 12.0-14.7 [facility] CenterCuiaopdQYPOMFOLFC5288-30-32 01:08:00 Test Item Value Reference Range Interpretation Comments INR (test code = INR) 1.22 1 0.85-1.17 [facility] CenterRgobudkHBRDZMVKJK9588-53-90 01:08:00 Test Item Value Reference Range Interpretation Comments PTT (test code = PTT) 28.6 s 22.9-35.8 [facility] WcfckdgJPSEFXWAGF0267-94-21 01:08:00Normal (01/10/19 7:08 PM)[facility] TgaifmjRLZONQDPFA6373-34-84 01:08:001+ (01/10/19 7:08 PM)[facility] QIZEPWIXFV9061-06-20 01:08:00Moderate *ABN*(01/10/19 7:08 PM)[facility] TKSACFEJRY5109-51-00 01:08:00Moderate *ABN*(01/10/19 7:08 PM)[facility] TPSWJPZDVN1600-29-98 01:08:00Moderate *ABN*(01/10/19 7:08 PM)[facility] INGZUKSEHE7130-82-31 01:08:000.1[facility] FceyeapXNDHUTBZTD2954-10-17 01:08:000.9 [facility] ErylksjPOJVTUFXBN3269-02-96 01:08:003+ *NA*(01/10/19 7:08 PM)[facility]UR[facility] AND LFWJH7490-87-69 01:08:00Amber *ABN*(01/10/19 7:08 PM)[facility] KZQZE4402-71-51 01:08:00Marked *ABN*(01/10/19 7:08 PM)[facility] YKPAN7804-16-79 01:08:00 Test Item Value Reference Range Interpretation Comments UA Spec Grav (test code = UA Spec 1.018 1 Grav) [facility] ATTVJ2168-51-56 01:08:00 Test Item Value Reference Range Interpretation Comments UA pH (test code = UA pH) 5.0 1 5.0-8.0 [facility] ZPOOQ4437-24-10 01:08:00Small *ABN*(01/10/19 7:08 PM) [facility] NFCKR2961-83-93 01:08:00Small *ABN*(01/10/19 7:08 PM) [facility] FXYIJ4639-37-15 01:08:004.0[facility]UR[facility] AND DVZIZ9999-85-46 01:08:00Negative (01/10/19 7:08 PM)[facility] NHERT9915-42-66 01:08:00Moderate *ABN*(01/10/19 7:08 PM)[facility] AND CGTGK8049-47-60 01:08:00>182[facility]UR[facility] AND RUTOC6191-54-11 01:08:004[facility] HermannANEMIA ZVAWP7833-86-27 01:08:47429Nlqajqob [place] ANEMIA GODZQ3474-14-84 01:08:16330Eaumuejd HermannANEMIA KXPUH4897-07-14 01:08:57382Uvzuiqyq HermannANEMIA VRCND1505-71-53 01:08:0095[facility] ANEMIA YQPPN8075-83-11 01:08:0059[facility] HermannANEMIA ADDEG5633-82-47 01:08:00 10.9[facility] HermannANEMIA QAYRG1237-65-94 01:08:60164Fxgeswgb HermannBLOOD BANK YMGWRFL6087-71-07 01:08:00Negative (01/10/19 7:08 PM)[facility] B[facility] MCECMXK6632-51-99 01:08:00Product available 7(01/10/19 7:08 PM)[facility] CHEM XEUZC7434-91-06 01:08:28183Odnaipwb HermannCHEM LGAHJ2094-85-02 01:08:98372 [facility]annCHEM AAKYE6820-98-06 01:08:0011[facility]annCHEM PANEL 2019-01-11 01:08:001.32[facility]annCHEM QPSMP2423-01-51 01:08:82419Ndrjdtfd HermannCHEM HEUFM9109-21-77 01:08:003.7[facility]annCHEM DSXVL0230-60-59 01:08:95220Jurakdji HermannCHEM YZFIV2940-67-59 01:08:0026[facility]annCHEM WBGDL4750-05-11 01:08:008.5[facility]annCHEM BECBW0955-31-88 01:08:006.8 [facility]annCHEM DVEML4960-90-20 01:08:003.9[facility]annCHEM PANEL 2019-01-11 01:08:0016[facility]annCHEM QZAIF2714-83-23 01:08:0028[facility]annCHEM PZQSH9454-81-71 01:08:0096[facility]annCHEM XMTPV0944-09-52 01:08:004.3[facility] HermannCHEM SNREZ1986-27-04 01:08:0041[facility]annCHEM QENSU3164-57-73 01:08:0010.7[facility] HermannCHEM ILZLZ5098-64-88 01:08:00 Test Item Value Reference Range Interpretation Comments B/C Ratio (test code = B/C Ratio) 8 1 6-25 [facility] VTOCO9426-24-51 01:08:002.9[facility]annCHEM PANEL 2019-01-11 01:08:00 Test Item Value Reference Range Interpretation Comments A/G Ratio (test code = A/G Ratio) 1.3 1 0.7-1.6 [facility] TempleWbclscvBNCFURWNID1128-64-44 01:08:0017.3[facility] HermannHEMATOLOG[facility] 2019-01-11 01:08:00 Test Item Value Reference Range Interpretation Comments PT (test code = PT) 15.2 s 12.0-14.7 [facility] TempleNvkmgfaMJRJFUHDIJ0103-19-32 01:08:00 Test Item Value Reference Range Interpretation Comments INR (test code = INR) 1.22 1 0.85-1.17 [facility] TempleUxubaknMKGNSRNRZD0983-33-11 01:08:00 Test Item Value Reference Range Interpretation Comments PTT (test code = PTT) 28.6 s 22.9-35.8 [facility] TemplePqbolclGQYJZAURRZ2561-22-70 01:08:00Normal (01/10/19 7:08 PM)[facility] TempleKwkenytRDZQNVMFLE9939-99-32 01:08:001+ (01/10/19 7:08 PM)[facility] JSNHURTOQZ2952-14-57 01:08:00Moderate *ABN*(01/10/19 7:08 PM)[facility] CNQQABWSGY3717-83-37 01:08:00Moderate *ABN*(01/10/19 7:08 PM)[facility] SYGCWPYPDN3624-88-68 01:08:00Moderate *ABN*(01/10/19 7:08 PM)[facility] HUDIEZSFWY5301-54-19 01:08:000.1[facility] EdgcqulEYZHEEYGUH3859-18-35 01:08:000.9 [facility] SkisdpbBBAKTMAELD4998-34-96 01:08:003+ *NA*(01/10/19 7:08 PM)[facility]UR[facility] AND BDUTF9173-05-64 01:08:00Amber *ABN*(01/10/19 7:08 PM)[facility]UR[facility] AND QNBPY9108-56-73 01:08:00Marked *ABN*(01/10/19 7:08 PM)[facility] ECFNE9699-31-12 01:08:00 Test Item Value Reference Range Interpretation Comments UA Spec Grav (test code = UA Spec 1.018 1 Grav) [facility] TREFM9741-74-07 01:08:00 Test Item Value Reference Range Interpretation Comments UA pH (test code = UA pH) 5.0 1 5.0-8.0 [facility] PTVXI2201-66-60 01:08:00Small *ABN*(01/10/19 7:08 PM) [facility] GWKFW4332-24-67 01:08:00Small *ABN*(01/10/19 7:08 PM) [facility] ATFXL8574-97-83 01:08:004.0[facility]UR[facility] AND JLXVN3496-88-76 01:08:00Negative (01/10/19 7:08 PM)[facility] WWKGH2152-68-20 01:08:00Moderate *ABN*(01/10/19 7:08 PM)[facility] CSOEC3291-27-79 01:08:00>182[facility]UR[facility] AND DGGMR1126-81-56 01:08:004[facility] HermannANEMIA UEVAT6719-88-20 01:08:53453Usolseey Ghanshyam ANEMIA TFYWM4977-41-29 01:08:72620Leefbsnv HermannANEMIA MRKRU4702-58-38 01:08:84123Xvhmtfnj HermannANEMIA CIOWZ7905-53-98 01:08:0095[facility] ANEMIA AUETB4244-65-48 01:08:0059[facility] HermannANEMIA URXXB6360-95-76 01:08:00 10.9[facility] HermannANEMIA KNBMR7602-59-15 01:08:27516Zzhzzsxs HermannBLOOD BANK CEYZYDP2108-58-68 01:08:00Negative (01/10/19 7:08 PM)[facility]BL[facility]OD BANK OYHWWXT4683-66-60 01:08:00Product available 7(01/10/19 7:08 PM)[facility] CHEM MCJAM4904-20-71 01:08:45559Fouizvxw HermannCHEM RHPGQ6265-82-16 01:08:81926 [facility]annCHEM YHFET0750-13-12 01:08:0011[facility] HermannCHEM PANEL 2019-01-11 01:08:001.32[facility] HermannCHEM DMEXI1398-54-52 01:08:26113Qxiqsgzg HermannCHEM OGRXS9311-23-62 01:08:003.7[facility] HermannCHEM OJOHW1275-35-27 01:08:74131Ckjcaueg HermannCHEM VPGBB2992-43-43 01:08:0026[facility] HermannCHEM FMMAE1967-78-11 01:08:008.5[facility] HermannCHEM LHUSB6578-80-60 01:08:006.8 [facility]annCHEM JFWXH6035-84-70 01:08:003.9[facility] HermannCHEM PANEL 2019-01-11 01:08:0016[facility] HermannCHEM DKPQS3942-47-77 01:08:0028[facility] HermannCHEM SIBIE1480-63-63 01:08:0096[facility] HermannCHEM VUZIE2669-46-62 01:08:004.3[facility] HermannCHEM SSBWW8328-29-03 01:08:0041[facility] HermannCHEM ILDIM4667-75-85 01:08:0010.7[facility] HermannCHEM QPPUJ4712-06-34 01:08:00 Test Item Value Reference Range Interpretation Comments B/C Ratio (test code = B/C Ratio) 8 1 6-25 [facility]annCHEM DPUUX0676-58-59 01:08:002.9[facility] HermannCHEM PANEL 2019-01-11 01:08:00 Test Item Value Reference Range Interpretation Comments A/G Ratio (test code = A/G Ratio) 1.3 1 0.7-1.6 [facility] LefoprxZALYHAKKZS9458-16-24 01:08:0017.3[facility] HermannHEMATOLOGY 2019-01-11 01:08:00 Test Item Value Reference Range Interpretation Comments PT (test code = PT) 15.2 s 12.0-14.7 [facility] UtrgpwdSRKZRKFCCQ6861-69-13 01:08:00 Test Item Value Reference Range Interpretation Comments INR (test code = INR) 1.22 1 0.85-1.17 [facility] ZlnkxplXDHUIOBIRC2079-04-75 01:08:00 Test Item Value Reference Range Interpretation Comments PTT (test code = PTT) 28.6 s 22.9-35.8 [facility] JzpnupoQDBKGNVABL2547-56-20 01:08:00Normal (01/10/19 7:08 PM)[facility] GumwsueUUXQAPNYFV2949-67-66 01:08:001+ (01/10/19 7:08 PM)[facility] SPMZHAGAAZ5101-13-56 01:08:00Moderate *ABN*(01/10/19 7:08 PM)[facility] MXHJIRQGBO3478-56-08 01:08:00Moderate *ABN*(01/10/19 7:08 PM)[facility] BRLQQMADPV6375-38-05 01:08:00Moderate *ABN*(01/10/19 7:08 PM)[facility] WMGMJPVYWW4681-55-96 01:08:000.1[facility] UzdwpkeFEERCNZWJK4045-52-22 01:08:000.9 [facility] GncbqluETREEXOVNT2774-57-09 01:08:003+ *NA*(01/10/19 7:08 PM)[facility] VYVPO1606-43-81 01:08:00Amber *ABN*(01/10/19 7:08 PM)[facility]UR[facility] PCAIM3138-01-19 01:08:00Marked *ABN*(01/10/19 7:08 PM)[facility]UR[facility] AND WQMZW2832-48-96 01:08:00 Test Item Value Reference Range Interpretation Comments UA Spec Grav (test code = UA Spec 1.018 1 Grav) [facility] UDFSA5508-63-15 01:08:00 Test Item Value Reference Range Interpretation Comments UA pH (test code = UA pH) 5.0 1 5.0-8.0 [facility] BHMHR1670-33-76 01:08:00Small *ABN*(01/10/19 7:08 PM) [facility] EEBWG4908-07-86 01:08:00Small *ABN*(01/10/19 7:08 PM) [facility] FPHII2737-81-33 01:08:004.0[facility]UR[facility] AND ERJCH5967-53-18 01:08:00Negative (01/10/19 7:08 PM)[facility]UR[facility] JSMLE0730-49-07 01:08:00Moderate *ABN*(01/10/19 7:08 PM)[facility] AND ZTAMU2833-52-43 01:08:00>182[facility]annUR[facility] AND LBMZS4726-51-22 01:08:004[facility] HermannANEMIA YZHZD9567-06-80 01:08:36837Pazxgebi [place] ANEMIA MSAVF0138-38-33 01:08:08280Koeppluz [place]
--- NOTE | 2020-10-30 21:21 | RAD REPORT ---
EXAM DESCRIPTION: John Single View10/30/2020 9:11 pm CLINICAL HISTORY: cough COMPARISON: none FINDINGS: Calcified granulomas right lung. The lungs appear clear of acute infiltrate. The heart is mildly enlarged IMPRESSION: No acute abnormalities displayed
[2020-10-30] MEDS ORDERED: NA CHLORIDE 0.9% 3,000 ML ONE (21:54)
[2020-10-30 22:08] LABS: Basophils % 0.4 % (0-1.3); MPV 7.9 fL (7.6-11.3); RBC Red Blood Cell Count 1.94 M/uL (3.86-4.86)
[2020-10-30 22:10] LABS: Protime INR 1.46
[2020-10-30 22:18] LABS: Hematocrit 18.2 % (36.0-45.0)
[2020-10-30 22:45] LABS: Basophilic Stippling 2+; Blood Morphology Comment NOTED (NOT SEEN); Platelet Estimate ADEQ
[2020-10-30 22:46] LABS: Polychromasia 2+
[2020-10-30] MEDS ORDERED: PIPER/TAZO/NS 3.375gm 3.375 GM/100 ML BAG ONE (23:54)
[2020-10-31 02:11] LABS: ALT/SGPT 11 U/L (12-78); AST/SGOT 9 U/L (15-37); Albumin 2.5 g/dL (3.4-5.0); Alkaline Phosphatase 105 U/L (45-117); Amylase 16 U/L (25-115); BUN Blood Urea Nitrogen 25 mg/dL (7-18); Bicarbonate 22 mmol/L (21-32); Bilirubin Direct 0.6 mg/dL (0-0.2); Bilirubin Total 1.5 mg/dL (0.2-1.0); CKMB Creatine Kinase MB 1.1 ng/mL (1.0-3.6); Creatine Phosphokinase 55 U/L (26-192); Glucose Level 96 mg/dL (74-106); Lipase 39 U/L (73-393); Potassium 4.8 mmol/L (3.5-5.1); Protein, Total 5.7 g/dL (6.4-8.2); Sodium Level 135 mmol/L (136-145); Troponin (Emerg Dept Use Only) < 0.02 ng/mL (0.0-0.045)
--- NOTE | 2020-10-31 05:09 | EDPHYS ---
Physician Documentation [facility] Name: Ivette Garsia Age: 74 yrs Sex: Female : 1945 Arrival Date: 10/30/2020 Time: 20:16 Bed 26 Private MD: RONI Physician Alonso Mike HPI: 10/30 20:45 This 74 yrs old Female presents to ER via Wheelchair with complaints of Post [facility] Surgical Pain, Surgical wound opened up. 20:45 The patient presents with abdominal pain that is diffuse, Surgical wound opened up. [facility] 20:45 Onset: The symptoms/episode began/occurred 3 day(s) ago. The symptoms do not radiate. [facility] Associated signs and symptoms: Pertinent negatives: nausea, vomiting, and diarrhea, nausea and vomiting, anorexia, blood in stools, chest pain, constipation, diarrhea, dysuria, fever, headache, hematuria, nausea, palpitations, shortness of breath, vaginal discharge, vomiting, vomiting blood. The symptoms are described as intermittent, vague, waxing/waning. Modifying factors: The symptoms are alleviated by nothing, the symptoms are aggravated by nothing. 20:45 Severity of pain: At its worst the pain was moderate 3 day(s) ago, in the emergency [facility] the pain has resolved and did so earlier today. 20:45 Patient reports having abdominal surgery on October 11 of this year at a hospital in [address] She states that she had colon removal and hernia repair and a colostomy bag was placed. She states that the surgical wound opened up 3 days ago. She denies any fever, nausea, vomiting, diarrhea.. Historical: - Allergies: 20:28 No Known Allergies; vg1 - Home Meds: 20:28 levothyroxine oral [Active]; vg1 - PSHx: 20:28 Hernia Repair; Colon; vg1 - Immunization history:: Adult Immunizations up to date, Client reports having NOT received the Covid vaccine. - Social history:: Smoking status: Patient denies any tobacco usage or history of. ROS: 20:45 Constitutional: Negative for fever, chills, and weight loss, Eyes: Negative for injury, 7 pain, redness, and discharge, ENT: Negative for injury, pain, and discharge, Neck: Negative for injury, pain, and swelling, Cardiovascular: Negative for chest pain, palpitations, and edema, Respiratory: Negative for shortness of breath, cough, wheezing, and pleuritic chest pain, Back: Negative for injury and pain, : Negative for injury, bleeding, discharge, and swelling, MS/Extremity: Negative for injury and deformity, Neuro: Negative for headache, weakness, numbness, tingling, and seizure, Psych: Negative for depression, anxiety, suicide ideation, homicidal ideation, and hallucinations, Allergy/Immunology: Negative for hives, rash, and allergies, Endocrine: Negative for neck swelling, polydipsia, polyuria, polyphagia, and marked weight changes, Hematologic/Lymphatic: Negative for swollen nodes, abnormal bleeding, and unusual bruising. Exam: 20:45 Constitutional: This is a well developed, well nourished patient who is awake, alert, mh7 and in no acute distress. Head/Face: Normocephalic, atraumatic. Eyes: Pupils equal round and reactive to light, extra-ocular motions intact. Lids and lashes normal. Conjunctiva and sclera are non-icteric and not injected. Cornea within normal limits. Periorbital areas with no swelling, redness, or edema. Neck: Trachea midline, no thyromegaly or masses palpated, and no cervical lymphadenopathy. Supple, full range of motion without nuchal rigidity, or vertebral point tenderness. No Meningismus. Chest/axilla: Normal chest wall appearance and motion. Nontender with no deformity. No lesions are appreciated. 20:45 Respiratory: Lungs have equal breath sounds bilaterally, clear to auscultation and percussion. No rales, rhonchi or wheezes noted. No increased work of breathing, no retractions or nasal flaring. Back: No spinal tenderness. No costovertebral tenderness. Full range of motion. MS/ Extremity: Pulses equal, no cyanosis. Neurovascular intact. Full, normal range of motion. Neuro: Awake and alert, GCS 15, oriented to person, place, time, and situation. Cranial nerves II-XII grossly intact. Motor strength 5/5 in all extremities. Sensory grossly intact. Cerebellar exam normal. Normal gait. Psych: Awake, alert, with orientation to person, place and time. Behavior, mood, and affect are within normal limits. 20:45 Cardiovascular: Rate: tachycardic, Rhythm: regular, Pulses: no pulse deficits are appreciated, Heart sounds: normal, normal S1and S2, Edema: is not appreciated, JVD: is not appreciated. 20:45 Abdomen/GI: Inspection: Open surgical wound midline abdomen with surrounding erythema, mh7 colostomy bag right lower abdomen., Bowel sounds: normal, in all quadrants, Palpation: mild abdominal tenderness, in all quadrants, Rectal exam: Stool: brown, guaiac negative, Stool sample from colostomy bag with brown stool. Indicators: McBurney's point is not tender, Venegas's sign is negative, Rovsing's sign is negative, Obturator sign is negative, Psoas sign is negative, Liver: no appreciated palpable abnormalities, Hernia: not appreciated. 10/31 09:41 ECG was reviewed by the Attending Physician. brijesh Vital Signs: 10/30 20:23 BP 92 / 44; Pulse 129; Resp 20; Temp 99.7(O); Pulse Ox 98% on R/A; Weight 90.72 kg; vg1 Height 5 ft. 5 in. (165.10 cm); Pain 0/10; 20:40 BP 105 / 40; Pulse 113; Resp 20; Pulse Ox 98% on R/A; Pain 0/10; ld1 22:55 BP 98 / 31; Pulse 104; Resp 24; Pulse Ox 98% on R/A; ld1 10/31 03:06 BP 110 / 37; Pulse 106; Resp 18; Pulse Ox 100% ; lh3 10:55 BP 105 / 42; Pulse 100; Resp 24; Temp 98.8(O); Pulse Ox 100% on R/A; Pain 0/10; ch5 11:00 BP 99 / 42; Pulse 98; Resp 22; Temp 98.9; Pulse Ox 99% on R/A; Pain 0/10; ch5 11:05 BP 99 / 40; Pulse 96; Resp 24; Temp 98.8; Pulse Ox 99% on R/A; Pain 0/10; ch5 11:10 BP 113 / 55; Pulse 96; Resp 24; Temp 98.7; Pulse Ox 99% on R/A; Pain 0/10; ch5 12:19 BP 126 / 40; Pulse 98; Resp 16; Temp 98.6; aj2 13:19 BP 111 / 55; Pulse 96; Resp 18; Temp 98.7; Pulse Ox 100% ; aj2 10/30 20:23 Body Mass Index 33.28 (90.72 kg, 165.10 cm) vg1 10:55 Baseline for Blood transfusiion ch5 Procedures: 09:32 I \T\ D: Incision and drainage was performed for an abscess of the Prepped with Betadine, brijesh Anesthetized with nothing. Incised with none. Drained large amount purulent fluid. Packed with cling. Dressing: sterile 4x4 gauze, non-Adherent dressing, the patient tolerated the procedure well. MDM: 05:03 Differential diagnosis: bowel obstruction, non-specific abd pain, urinary tract [facility] infection, Postoperative infection, wound dehiscence. Data reviewed: vital signs, nurses notes, lab test result(s), CBC, electrolytes, urinalysis, EKG, radiologic studies, CT scan, plain films. Counseling: I had a detailed discussion with the patient and/or guardian regarding: the need to transfer to another facility. 05:08 Patient medically screened. [facility] 09:25 Patient medically screened. [facility] 09:30 Data interpreted: monitoring engineer: rate is 96 beats/min, rhythm is regular, Pulse brijesh oximetry: on room air is 100 %. Test interpretation: by ED physician or midlevel provider: ECG, plain radiologic studies. 09:30 Physician consultation: dr ariadne herbert wants pt , transfused , wound packed and drained, brijesh sent to office at [facility] [address] now, i concur with the plan and will do. 09:32 ED course: will send pt now, with daughter. [facility] 10/30 20:59 Order name: Amylase, Serum [facility] 10/30 20:59 Order name: Basic Metabolic Panel [facility] 10/30 20:59 Order name: Blood Culture Adult (2) [facility] 10/30 20:59 Order name: CBC with Diff; Complete Time: 22:55 [facility] 10/30 20:59 Order name: CPK; Complete Time: 02:37 [facility] 10/30 20:59 Order name: Ckmb; Complete Time: 02:37 [facility] 10/30 20:59 Order name: LFT's; Complete Time: 02:37 [facility] 10/30 20:59 Order name: Lactate; Complete Time: 22:34 [facility] 10/30 20:59 Order name: Lipase; Complete Time: 02:37 [facility] 10/30 20:59 Order name: Procalcitonin; Complete Time: 22:36 [facility] 10/30 20:59 Order name: Protime (+inr); Complete Time: 22:34 [facility] 10/30 20:59 Order name: Ptt, Activated; Complete Time: 22:34 [facility] 10/30 20:59 Order name: Troponin (emerg Dept Use Only); Complete Time: 02:37 [facility] 10/30 20:59 Order name: Amylase; Complete Time: 02:37 [facility] 10/30 20:59 Order name: Basic Metabolic Panel; Complete Time: 02:37 [facility] 10/30 20:59 Order name: Blood Culture [facility] 10/30 21:00 Order name: Wound Culture; Complete Time: 07:15 [facility] 10/30 21:56 Order name: Glucose, Ancillary Testing; Complete Time: 22:02 [facility] 10/30 22:19 Order name: Manual Differential; Complete Time: 22:55 [facility] 10/30 22:36 Order name: Type And Screen [facility] 10/30 22:36 Order name: PRBC [facility] 10/30 22:36 Order name: ABO/RH typing [facility] 10/30 22:36 Order name: Antibody Screen [facility] 10/30 23:49 Order name: SARS-COV-2 RT PCR; Complete Time: 00:11 [facility] 10/30 23:56 Order name: ABO/RH no charge; Complete Time: 00:11 [facility] 10/30 23:58 Order name: Antibody Identification [facility] 10/30 20:59 Order name: Chest Single View XRAY; Complete Time: 21:39 [facility] 10/30 20:59 Order name: Accucheck; Complete Time: 21:46 [facility] 10/30 20:59 Order name: EKG - Nurse/Tech; Complete Time: 21:46 [facility] 10/30 20:59 Order name: IV Saline Lock - Large Bore; Complete Time: 21:46 [facility] 10/30 20:59 Order name: Labs collected and sent; Complete Time: 21:46 [facility] 10/30 20:59 Order name: O2 Per Protocol; Complete Time: 21:45 [facility] 10/30 20:59 Order name: O2 Sat Monitoring; Complete Time: 21:45 [facility] 10/30 22:36 Order name: Transfuse; Complete Time: 11:35 [facility] 10/31 01:37 Order name: Abdomen EDOK 10/31 03:36 Order name: Antigen type [facility] 10/31 07:08 Order name: CREATININE WHOLE BLOOD; Complete Time: 07:15 [facility] 10/31 07:22 Order name: EKG Electrocardiogram; Complete Time: 10:30 [facility] 10/31 09:15 Order name: Transfuse; Complete Time: 12:44 [facility] 10/31 09:15 Order name: Dressing - Wound; Complete Time: 09:46 [facility] 10/31 09:15 Order name: Gloves, Sterile; Complete Time: 09:46 [facility] 10/31 09:15 Order name: Setup Suture Tray; Complete Time: 09:46 [facility] 10/31 09:19 Order name: Packed RBCs (Additional Unit) [facility] 10/31 09:20 Order name: NPO; Complete Time: 10:30 [facility] EC:41 Rate is 114 beats/min. Rhythm is regular. SC interval is normal. QRS interval is brijesh normal. QT interval is normal. No Q waves. T waves are Normal. No ST changes noted. Clinical impression: Sinus tachycardia. Interpreted by me. Reviewed by me. Administered Medications: 10/30 21:45 Drug: NS 0.9% (30 ml/kg) 30 ml/kg Route: IV; Rate: bolus; Site: left antecubital; ld1 10/31 00:32 Drug: Zosyn (piperacillin-tazobactam) 3.375 grams Route: IVPB; Infused Over: 60 mins; ld1 Site: left antecubital; 09:10 Drug: Zosyn (piperacillin-tazobactam) 3.375 grams Route: IVPB; Infused Over: 60 mins; ch5 Site: right antecubital; 09:47 Drug: Flagyl (metroNIDAZOLE) 500 mg Volume: 100 ml; Route: IVPB; Rate: 200 ml/hr; aj2 Infused Over: 30 mins; Site: right upper arm; 10:30 Drug: NS 0.9% 1000 ml Route: IV; Rate: 1 bolus; Site: right upper arm; aj2 12:44 Not Given (pt transfusedd): D5-NS 1000 ml IV at 125 ml/hr continuous ap3 Point of Care Testing: Blood Glucose: 10/30 21:47 Blood Glucose: 93 mg/dL; ld1 Ranges: Critical Glucose Levels:Adult <50 mg/dl or >400 mg/dl <40 mg/dl or >180 mg/dl Disposition Summary: 10/31/20 09:25 Discharge Ordered Location: Home brijesh Problem: new(10/31/20 09:25) brijesh Symptoms: have improved(10/31/20 09:25) brijesh Condition: Stable(10/31/20 09:25) brijesh Diagnosis - Cutaneous abscess of abdominal wall - large brijesh - Anemia, unspecified brijesh - Colostomy complication, unspecified brijesh - Obesity, unspecified brijesh Followup: brijesh - With: Private Physician - When: Upon discharge from the Emergency Department - Reason: Recheck today's complaints, Continuance of care, Re-evaluation by your physician Discharge Instructions: - Discharge Summary Sheet brijesh - Skin Abscess brijesh - Anemia brijesh - Obesity, Adult brijesh - Skin Abscess, [id number] brijesh - Colostomy Home Guide, Adult brijesh - Incision and Drainage, Care After brijesh - Colostomy Surgery, Adult brijesh Forms: - Medication Reconciliation Form brijesh - Thank You Letter brijesh - Antibiotic Education brijesh - Prescription Opioid Use brijesh Signatures: Dispatcher [employer] EDMS Alonso Mike MD MD cha Garcia, Victoria, RN RN vg1 Gene Enamorado MD MD mh7 Renay Lima RN RN ld1 Silvana Molina RN RN lh3 Tatiana Luna2 Jeff Ward RN RN ch5 Zabrina Thomas RN ap3 Corrections: (The following items were deleted from the chart) 22:42 21:46 CORONAVIRUS+MR.LAB.BRZ ordered. EDOK EDOK 23:01 22:36 Type and Screen ordered. EDOK EDOK 10/31 01:37 10/30 21:22 Abdomen Pelvis W Con+CT.RAD.BRZ ordered. EDOK EDOK 10/31 04:07 03:30 PACKED RBC LEUKORED -1+BB.LAB.BRZ ordered. EDOK EDOK 04:07 03:30 ABO/RH typing ordered. EDOK EDOK 04:07 03:30 Antibody Screen ordered. EDOK EDOK 07:01 05:08 [place] [id number] 09:24 05:08 Other Acute Care Facility [address] 09:24 05:08 Higher level of care [address] 09:24 05:[address] 09:24 05:[address] 09:24 05:08 are unchanged [address] 05:08 Surgical wound Infection, Abscess, Wound Dehisence [address] 07:[address] 07:01 Anemia in other chronic diseases classified elsewhere [address]
--- NOTE | 2020-10-31 05:09 | ER ---
Nurse's Notes [facility] Name: Ivette Garsia Age: 74 yrs Sex: Female : 1945 Arrival Date: 10/30/2020 Time: 20:16 Bed 26 Private MD: Diagnosis: Cutaneous abscess of abdominal wall-large;Anemia, unspecified;Colostomy complication, unspecified;Obesity, unspecified Presentation: 10/30 20:23 Chief complaint: Patient states: Had abdominal surgery on 10/11/[address] in [place] [address] Dr melonie [place], states 'colon was removed and they fixed a hernia'. Pt states that the surgical site on ABD has opened up. Site appears to be red, swollen and has purulence and an odor. Pt denies pain at this time; denies NV, does state has a 'bad headache'. Coronavirus screen: Vaccine status: Patient reports being unvaccinated. Ebola Screen: Patient negative for fever greater than or equal to 101.5 degrees Fahrenheit, and additional compatible Ebola Virus Disease symptoms. Initial Sepsis Screen: Does the patient meet any 2 criteria? No. Patient's initial sepsis screen is negative. Does the patient have a suspected source of infection? No. Patient's initial sepsis screen is negative. Risk Assessment: Do you want to hurt yourself or someone else? Patient reports no desire to harm self or others. Onset of symptoms was October 30, 2020. 20:23 Method Of Arrival: Wheelchair vg1 20:23 Acuity: ABELARDO 2 vg1 10/31 03:06 Note Called lab about blood, Janak stated that they are still working on getting blood 3 for patient. Triage Assessment: 10/30 20:28 General: Appears in no apparent distress. uncomfortable, Behavior is calm, cooperative. vg1 Pain: Denies pain. 10/31 12:19 Neuro: No deficits noted. Cardiovascular: Rhythm is regular. Respiratory: No deficits aj2 noted. Historical: - Allergies: 10/30 20:28 No Known Allergies; vg1 - Home Meds: 20:28 levothyroxine oral [Active]; vg1 - PSHx: 20:28 Hernia Repair; Colon; vg1 - Immunization history:: Adult Immunizations up to date, Client reports having NOT received the Covid vaccine. - Social history:: Smoking status: Patient denies any tobacco usage or history of. Screenin:40 Abuse screen: Denies threats or abuse. Denies injuries from another. Nutritional ld1 screening: No deficits noted. Tuberculosis screening: No symptoms or risk factors identified. Fall Risk None identified. Assessment: 20:40 General: Appears in no apparent distress. comfortable, Behavior is calm, cooperative, ld1 appropriate for age. Pain: Denies pain. Neuro: Level of Consciousness is awake, alert, obeys commands, Oriented to person, place, time, situation, Appropriate for age. Cardiovascular: Capillary refill < 3 seconds Patient's skin is warm and dry. Respiratory: Airway is patent Respiratory effort is even, unlabored, Respiratory pattern is regular, symmetrical. GI: Abdomen is round non-distended, Ileostomy site is clean and dry. Ostomy appliance is intact. Patient reports abdominal surgery on October 11, 2020. Upon arrival, examination reveals incision dehiscence. : No signs and/or symptoms were reported regarding the genitourinary system. EENT: No signs and/or symptoms were reported regarding the EENT system. Derm: No signs and/or symptoms reported regarding the dermatologic system. Musculoskeletal: No signs and/or symptoms reported regarding the musculoskeletal system. 22:55 Reassessment: Patient appears in no apparent distress at this time. No changes from ld1 previously documented assessment. Patient and/or family updated on plan of care and expected duration. Pain level reassessed. Patient denies pain at this time. 10/31 12:27 Reassessment: Patient is alert, oriented x 3, equal unlabored respirations, skin aj2 warm/dry/pink. 13:21 Reassessment: Patient appears in no apparent distress at this time. Patient and/or aj2 family updated on plan of care and expected duration. Pain level reassessed. Patient is alert, oriented x 3, equal unlabored respirations, skin warm/dry/pink. Patient states feeling better. Vital Signs: 10/30 20:23 BP 92 / 44; Pulse 129; Resp 20; Temp 99.7(O); Pulse Ox 98% on R/A; Weight 90.72 kg; vg1 Height 5 ft. 5 in. (165.10 cm); Pain 0/10; 20:40 BP 105 / 40; Pulse 113; Resp 20; Pulse Ox 98% on R/A; Pain 0/10; ld1 22:55 BP 98 / 31; Pulse 104; Resp 24; Pulse Ox 98% on R/A; ld1 10/31 03:06 BP 110 / 37; Pulse 106; Resp 18; Pulse Ox 100% ; lh3 10:55 BP 105 / 42; Pulse 100; Resp 24; Temp 98.8(O); Pulse Ox 100% on R/A; Pain 0/10; ch5 11:00 BP 99 / 42; Pulse 98; Resp 22; Temp 98.9; Pulse Ox 99% on R/A; Pain 0/10; ch5 11:05 BP 99 / 40; Pulse 96; Resp 24; Temp 98.8; Pulse Ox 99% on R/A; Pain 0/10; ch5 11:10 BP 113 / 55; Pulse 96; Resp 24; Temp 98.7; Pulse Ox 99% on R/A; Pain 0/10; ch5 12:19 BP 126 / 40; Pulse 98; Resp 16; Temp 98.6; aj2 13:19 BP 111 / 55; Pulse 96; Resp 18; Temp 98.7; Pulse Ox 100% ; aj2 10/30 20:23 Body Mass Index 33.28 (90.72 kg, 165.10 cm) vg1 10:55 Baseline for Blood transfusiion [facility] Vitals: 13:21 Cardiac Rhythm Assessment Regular. [facility] ED Course: 10/30 20:16 Patient arrived in ED. cf2 20:28 Triage completed. vg1 20:28 Arm band placed on. EKG completed in triage. Results shown to MD. EKG completed in 1 triage. Results shown to MD. 20:40 Patient has correct armband on for positive identification. Placed in gown. Bed in low ld1 position. Call light in reach. Side rails up X2. pvc monitor on. Pulse ox on. NIBP on. Door closed. Warm blanket given. 20:40 No provider procedures requiring assistance completed. ld1 20:52 Gene Enamorado MD is Attending Physician. 7 21:00 Renay Liam, MAMIE is Primary Nurse. ld1 21:11 Chest Single View XRAY In Process Unspecified. EDMS 21:35 Inserted saline lock: 22 gauge in left antecubital area, using aseptic technique. Blood mb4 collected. 22:15 Initial lab(s) drawn, by me, sent to lab. First set of blood cultures drawn by me, mb4 Second set of blood cultures drawn by me. 23:50 Missed attempt(s): 20 gauge in right forearm. Bleeding controlled, band aid applied, ds4 catheter tip intact. 10/31 01:40 Type And Screen Sent. lh3 01:57 Abdomen In Process Unspecified. EDMS 03:14 initiated a transfer with Alisa from [facility] transfer center. mw2 03:22 All [facility] campuses denied due to capacity. Alisa the Decision Analyst stated " try mw2 calling back in the morning there might be beds.". 07:13 Attending Physician role handed off by Gene Enamorado MD cha 07:13 Alonso Mike MD is Attending Physician. brijesh 07:35 re initiated transfer to [facility]. bd 07:40 pt denied at [facility]. bd 07:59 [facility] hospitals are all on transfer closure per Emerita. bd 12:19 EKG completed in triage. Results shown to MD. EKG completed in triage. Results shown to ajKelly MD. EKG completed in triage. Results shown to MD. 13:21 No apparent distress. Awaiting transportation, Awaiting: Approx 12:20 brief writer informed ajKelly Emma (daughter) of hospital discharge and to F/U with Dr. [facility] as instructed by ED physician. Daughter verbalized instruction and agreed. 13:21 Inserted IV Flushed. aj2 Administered Medications: 10/30 21:45 Drug: NS 0.9% (30 ml/kg) 30 ml/kg Route: IV; Rate: bolus; Site: left antecubital; ld1 10/31 00:32 Drug: Zosyn (piperacillin-tazobactam) 3.375 grams Route: IVPB; Infused Over: 60 mins; ld1 Site: left antecubital; 09:10 Drug: Zosyn (piperacillin-tazobactam) 3.375 grams Route: IVPB; Infused Over: 60 mins; ch5 Site: right antecubital; 09:47 Drug: Flagyl (metroNIDAZOLE) 500 mg Volume: 100 ml; Route: IVPB; Rate: 200 ml/hr; aj2 Infused Over: 30 mins; Site: right upper arm; 10:30 Drug: NS 0.9% 1000 ml Route: IV; Rate: 1 bolus; Site: right upper arm; aj2 12:44 Not Given (pt transfusedd): D5-NS 1000 ml IV at 125 ml/hr continuous ap3 Medication: 11:35 Blood products: PRBCs Second unit given at 1055. ch5 Point of Care Testing: Blood Glucose: 10/30 21:47 Blood Glucose: 93 mg/dL; ld1 Ranges: Outcome: 10/31 05:08 ER care complete, transfer ordered by . [facility] 09:25 Discharge ordered by MD. coley 13:43 Patient left the ED. iw Signatures: Dispatcher [employer] EDMS Jami Mullins Corey, MD MD cha Williams, Irene, RN RN Cb Valle 4 Paras Phoenix 2 Evette Barrow mb4 Diego Fletcher 2 Vanessa Christian RN RN vg1 Gene Enamorado MD MD 7 Renay Lima RN RN 1 Silvana Molina RN RN 3 Tatiana Luna 2 Jeff Ward RN RN ch5 Zabrina Thomas RN ap3 Corrections: (The following items were deleted from the chart) 10/30 20:30 20:23 Acuity: ABELARDO 3 vg1 vg1 22:42 21:57 CORONAVIRUS+ drawn and sent. [facility] EDPA
[2020-10-31] MEDS ORDERED: NA CHLORIDE 0.9% 250 ML ONE ×2 (05:27→11:08)
[2020-10-31] MEDS ORDERED: PIPERACIL/TAZO 3.375 GM VIAL IV ONE (09:03)
[2020-10-31] MEDS ORDERED: NA CHLORIDE 0.9% 100 ML ONE (09:04)
[2020-10-31] MEDS ORDERED: METRONIDAZOLE 500mg IVPB 500 MG/100 ML BAG IV ONE (10:14)
--- NOTE | 2020-10-31 12:22 | RAD REPORT ---
EXAM DESCRIPTION: CT - Abdomen Pelvis Wo Contrast - 10/31/2020 6:51 am CLINICAL HISTORY: Possible post operative infection;Abd pain TECHNIQUE: Axial computed tomography images of the abdomen and pelvis without intravenous contrast. Sagittal and coronal reformatted images were created and reviewed. This CT exam was performed usi ng one or more of the following dose reduction techniques: automated exposure control, adjustment o f the mA and/or kV according to patient size, and/or use of iterative reconstruction technique. COMPARISON: 07/29/2020 FINDINGS: Lung bases: Right basilar subsegmental atelectasis/pleural parenchymal scar. Right middle lobe ca lcified granulomata. Heart: The heart is mildly to moderately enlarged. Coronary artery calcification. Pericardial calci fications again demonstrated. Mediastinum: Small hiatal hernia. ABDOMEN: Liver: The liver is enlarged. Gallbladder and bile ducts: Prior cholecystectomy. No ductal dilation. Pancreas: Unremarkable. No ductal dilation. Spleen: The spleen is mildly enlarged. Adrenals: Unremarkable. No mass. Kidneys and ureters: Mild fullness of the renal collecting systems bilaterally, right greater than left. Parapelvic cysts on the left. No calculi. Stomach and bowel: Apparent interval colectomy with anastomosis at the level of the rectosigmoid co lloyd. New right abdominal enterostomy with a small to moderate parastomal hernia containing small mark l. Small bowel loops are intimately associated with the ventral abdominal wall. No obstruction. PELVIS: Appendix: See above. Bladder: Unremarkable. No stones. Reproductive: There has been a hysterectomy. No adnexal cysts or masses are identified. ABDOMEN and PELVIS: Intraperitoneal space: Unremarkable. No free air. No significant fluid collection. Bones/joints: Multilevel spondylosis. No acute fracture. No dislocation. Soft tissues: Interval ventral hernia repair. There is a large gas containing collection within the left paracentral ventral abdominal wall measuring approximately 17 x 6 x 13 cm. This communicates wi th a skin defect. Vasculature: Moderate to severe atherosclerotic disease. The infrarenal abdominal aorta measures 2. 5 cm in maximum diameter. Lymph nodes: Unremarkable. No enlarged lymph nodes. IMPRESSION: 1. Interval colectomy with right abdominal enterostomy. There is a small to moderate p arastomal hernia containing small bowel. 2. Interval ventral hernia repair. There is a large gas containing collection within the left parac entral ventral abdominal wall measuring approximately 17 x 6 x 13 cm which communicates with a skin d efect. This may reflect an infected collection/abscess. 3. Small bowel loops are intimately associated with the ventral abdominal wall. The possibility of underlying fistulization cannot be excluded. 4. Mild fullness of the renal collecting systems bilaterally. No renal, ureteral or bladder calculi . This appearance is nonspecific and could represent physiologic fullness. Please correlate clinicall y for urinary tract infection. 5. Other findings as above. Electronically signed by: Liz Thacker MD 10/31/2020 2:44 AM CDT Due to temporary technical issues with the PACS/Fluency reporting system, reports are being signed by the in house radiologist without review as a courtesy to ensure prompt reporting. The interpreting r adiologist is fully responsible for the content of the report.
[2020-10-31 14:08] VITALS: BP 111/55; TEMP 98.7; O2SAT 100
--- NOTE | 2020-11-01 16:16 | EKG ---
Test Date: 2020-10-31 Test Time: 10:21:15 Bookkeeper Assistant: EPHRAIM MEASUREMENT RESULTS: Intervals: Rate: 96 OK: 156 QRSD: 94 QT: 362 QTc: 457 [place]: P: 50 OK: 156 QRS: -2 T: 51 INTERPRETIVE STATEMENTS: Normal sinus rhythm Low voltage QRS Borderline ECG Compared to ECG 10/30/2020 21:40:05 Low QRS voltage now present Sinus tachycardia no longer present Myocardial infarct finding no longer present Electronically Signed On 11-01-20 16:12:01 CDT by Khai Winkler
== END 2020-10-31 13:43 | disposition home or self-care (01) ==
LOC: ER 20:15
PROC: 0J980ZZ Drainage of Abdomen Subcutaneous Tissue and Fascia, Open Approach (ICD-10-PCS; principal; 2020-10-31)
DX: L02.211 Cutaneous abscess of abdominal wall (principal); D64.9 Anemia, unspecified; K94.09 Other complications of colostomy; E66.9 Obesity, unspecified; Z20.822 Contact with and (suspected) exposure to COVID-19
CPT/HCPCS: 93005 ×2; 87040 ×2; 87070; 85025; 80048; 36415; 82150; 86900; 86850; 82550; 87205; 85610; 82565; 86902; 86870; 86901; 82947; 80076; 83605; 85730; 84484; 82553; 83690; 84145; 86922 ×2; 74176; 71045; 36430; 99285; 10060; U0003; J2543 ×2; P9016 ×2; J7050 ×2; J7030

== ENCOUNTER 2022-09-07 10:57 | Day surgery (SDC) | payer OTHER ==
[2022-09-07 11:02] LABS: Hematocrit 20.8 % (36.0-45.0); Lymphocytes % 33.6 % (15.3-44.8); MCV 119.8 fL (80-100); MPV 7.2 fL (7.6-11.3); RBC Red Blood Cell Count 1.73 M/uL (3.86-4.86)
[2022-09-07 11:17] LABS: Potassium 4.7 mEq/L (3.5-5.1)
[2022-09-07 11:26] VITALS: O2SAT 100
[2022-09-07 11:35] LABS: Blood Morphology Comment NOTED (NOT SEEN); Platelet Estimate ADEQ; White Blood Cell Scan OK (OK)
[2022-09-07 11:36] LABS: Anisocytosis 3+; Basophilic Stippling 2+; Macrocytosis 3+
[2022-09-07] MEDS: Ringers Lactate 1,000 ML IV ONE (11:40)
[2022-09-07] MEDS ORDERED: LIDOCAINE 1% MPF 2 ML AMPULE ONE (13:00)
[2022-09-07] MEDS ORDERED: propofoL 200 MG/20 ML VIAL IV ONE ×2 (13:00→14:17)
[2022-09-07 15:10] VITALS: BP 126/45; TEMP 98.2
--- NOTE | 2022-09-08 16:19 | EKG ---
Test Date: 2022-09-07 Test Time: 10:45:06 Emergency Room Technician: PITO MEASUREMENT RESULTS: Intervals: Rate: 80 NV: 162 QRSD: 100 QT: 392 QTc: 452 [place]: P: 32 NV: 162 QRS: -39 T: 41 INTERPRETIVE STATEMENTS: Normal sinus rhythm Left axis deviation Anterior infarct, age undetermined Abnormal ECG Compared to ECG 10/31/2020 10:21:15 Left-axis deviation now present Myocardial infarct finding now present Electronically Signed On 09-08-22 16:17:18 CDT by Nato Ortiz
== END 2022-09-07 14:37 | disposition home or self-care (01) ==
LOC: OR 10:57
PROVIDERS: ATTEND Surgery
PROC: 0DBP8ZX Excision of Rectum, Via Natural or Artificial Opening Endoscopic, Diagnostic (ICD-10-PCS; principal; 2022-09-07 14:15)
PROC: 0DB68ZX Excision of Stomach, Via Natural or Artificial Opening Endoscopic, Diagnostic (ICD-10-PCS; 2022-09-07 14:15)
DX: Z12.11 Encounter for screening for malignant neoplasm of colon (principal); Z85.038 Personal history of other malignant neoplasm of large intestine; K21.9 Gastro-esophageal reflux disease without esophagitis; D12.8 Benign neoplasm of rectum; K29.50 Unspecified chronic gastritis without bleeding; K31.7 Polyp of stomach and duodenum
CPT/HCPCS: 93005; 85025; 80048; 36415; 88312; 88305; 45385; 43239; J2704 ×2; J7120

== ENCOUNTER 2022-10-03 08:50 | Day surgery (SDC) | payer OTHER ==
[2022-10-03] MEDS ORDERED: NA CHLORIDE 0.9% 250 ML ONE (09:19)
[2022-10-03 09:38] VITALS: BP 129/49; TEMP 98.2; O2SAT 99; BMI 32.2
[2022-10-03 15:52] LABS: Hematocrit 23.2 % (36.0-45.0)
== END 2022-10-03 15:47 | disposition home or self-care (01) ==
LOC: DS 08:50
PROVIDERS: ATTEND Internal Medicine Hematology & Oncology
DX: D50.9 Iron deficiency anemia, unspecified (principal); N18.9 Chronic kidney disease, unspecified; D63.1 Anemia in chronic kidney disease
CPT/HCPCS: 36415; 86900; 86850; 86902; 86901; 86920 ×2; 85018; 85014; 86922 ×2; 36430; P9016 ×2; J7050